=== PATIENT | female | born 1975 | race African-American/Black ===

== ENCOUNTER 2017-08-28 15:53 | Inpatient (IN) | payer BC ==
[~2017-08-28] VITALS: Ht 162.6 cm; Wt 68.6 kg
[2017-08-28] MEDS ORDERED: SOD CHLORIDE 0.9% 1,000 ML IV STA (16:21)
[2017-08-28] MEDS ORDERED: morphine 4 MG/ML VIAL IV STA ×2 (16:21→18:38)
[2017-08-28] MEDS ORDERED: ONDANSETRON 4 MG INJ IV STA ×2 (16:21→18:38)
[2017-08-28] MEDS ORDERED: SOD CHLORIDE 0.9% 1,000 ML IV ONE ×2 (16:30→19:00)
[2017-08-28 16:42] LABS: ABNORMAL IP MESSAGE 1; HEMATOCRIT 46.1 % (37.0-47.0); MEAN CORPUSCULAR HEMOGLOBIN 30.4 pg (29.0-33.0); MEAN CORPUSCULAR HGB CONC 32.5 g/dl (32.0-37.0); MEAN CORPUSCULAR VOLUME 93.5 fl (82.0-101.0); MEAN PLATELET VOLUME 9.1 fl (7.4-10.4); PLATELET COUNT 658 10^3/UL (140-415); RED BLOOD COUNT 4.93 10^6/ul (4.20-5.40); RED CELL DISTRIBUTION WIDTH 15.8 % (11.5-14.5); WHITE BLOOD COUNT 32.8 10^3/ul (4.8-10.8)
[2017-08-28 17:00] LABS: ALANINE AMINOTRANSFERASE 32 IU/L (13-69); ALBUMIN/GLOBULIN RATIO 0.81; ALKALINE PHOSPHATASE 162 IU/L (42-121); ANION GAP 17 (8-16); ASPARTATE AMINO TRANSFERASE 31 IU/L (15-46); BILIRUBIN,INDIRECT 0.2 mg/dl (0-1.1); BILIRUBIN,TOTAL 0.2 mg/dl (0.2-1.3); BLOOD UREA NITROGEN 12 mg/dl (7-20); CALCIUM 8.7 mg/dl (8.4-10.2); CARBON DIOXIDE 24 mmol/L (21-31); CHLORIDE 95 mmol/L (97-110); CREATININE 0.47 mg/dl (0.44-1.00); GLUCOSE 125 mg/dl (70-220); POTASSIUM 4.7 mmol/L (3.5-5.1); SODIUM 131 mmol/L (135-144); TOTAL PROTEIN 6.7 g/dl (6.1-8.1)
[2017-08-28 17:01] LABS: POSITIVE DIFF @See below
[2017-08-28] MEDS ORDERED: ACET650S9 PR (17:32)
[2017-08-28] MEDS ORDERED: ADV25050 INHALATION (17:36)
[2017-08-28] MEDS ORDERED: ACET160S2 GTB (17:36)
[2017-08-28] MEDS ORDERED: ALBU2.5V3 NEB (17:38)
[2017-08-28] MEDS ORDERED: AMLO-147 GTB (17:38)
[2017-08-28] MEDS ORDERED: CHLO473M7 MM (17:43)
[2017-08-28] MEDS ORDERED: CHLO118L3 TOP (17:43)
[2017-08-28] MEDS ORDERED: CLON-379 GTB (17:44)
[2017-08-28] MEDS ORDERED: DULO60CA6 GTB (17:45)
[2017-08-28] MEDS ORDERED: IPRA3AMP INHALATION (17:46)
[2017-08-28] MEDS ORDERED: NA P230E RC (17:47)
[2017-08-28] MEDS ORDERED: GABA-526 PO (17:48)
[2017-08-28] MEDS ORDERED: UDROBAC GTB (17:51)
[2017-08-28] MEDS ORDERED: LACTINEX GTB (17:52)
[2017-08-28] MEDS ORDERED: MULT9LIQ2 GTB (17:54)
[2017-08-28] MEDS ORDERED: VANCOMYCIN HCL 250 MG/5ML POSYG PO ONE (18:00)
[2017-08-28] MEDS ORDERED: NYST1000 PO (18:02)
[2017-08-28] MEDS ORDERED: OXYC5CAP17 PO (18:03)
[2017-08-28] MEDS ORDERED: OXYC10TA63 GTB (18:04)
[2017-08-28] MEDS ORDERED: FAMO20TA18 PO (18:05)
[2017-08-28] MEDS ORDERED: POTA20LI5 GTB (18:09)
[2017-08-28] MEDS ORDERED: PRED10TA GTB (18:10)
[2017-08-28] MEDS ORDERED: PROT946L GTB (18:11)
[2017-08-28] MEDS ORDERED: PANT40TA3 GTB (18:12)
[2017-08-28] MEDS ORDERED: SENN-53 GTB (18:15)
[2017-08-28] MEDS ORDERED: TRAZ50TA18 GTB (18:16)
[2017-08-28 18:20] LABS: ANISOCYTOSIS 1+ (0-0); EOSINOPHILS % (M) 1 % (0-7); HYPOCHROMASIA 1+ (0-0); METAMYELOCYTES %M 2 % (0-0); MONOCYTES % (M) 7 % (0-11); MYELOCYTES % (M) 2 % (0-0); PLATELET ESTIMATE INCREASED; PROMYELOCYTES #M 0.6 10^3/ul (0-0); PROMYELOCYTES % (M) 2 % (0-0)
[2017-08-28] MEDS ORDERED: VAN120L PO ×4 (18:28→18:35)
[2017-08-28] MEDS ORDERED: ONDA-43 PO (18:36)
[2017-08-28] MEDS ORDERED: GUAIFENESIN/CODEINE 5ML CUP GTB PRN (19:00)
[2017-08-28] MEDS ORDERED: SENNA TAB GTB PRN (19:00)
[2017-08-28] MEDS ORDERED: MAGNESIUM HYDROXIDE 30ML CUP PO PRN (19:00)
[2017-08-28] MEDS ORDERED: NA PHOSPHATE/BIPHOS 133 ML ENEMA PR PRN (19:00)
[2017-08-28] MEDS ORDERED: VANCOMYCIN IV PER PHARMACY XX SCH (19:00)
[2017-08-28] MEDS ORDERED: NACL 0.9% 3 ML SYG IV SCH (19:00)
[2017-08-28] MEDS ORDERED: DOCUSATE SODIUM 100 MG CAP PO PRN (19:00)
[2017-08-28] MEDS ORDERED: LORAZEPAM 2 MG INJ IV PRN (19:00)
[2017-08-28] MEDS ORDERED: ALBUTEROL 0.083% (NEB) 2.5 MG/3 ML AMP NEB PRN (19:00)
[2017-08-28] MEDS ORDERED: ACETAMINOPHEN 325 MG TAB PO PRN ×2 (19:00)
[2017-08-28] MEDS ORDERED: NA PHOS DI BA RC PRN (19:00)
[2017-08-28] MEDS ORDERED: ONDANSETRON 4 MG INJ IV PRN (19:00)
[2017-08-28] MEDS ORDERED: hydrALAzine 20 MG INJ IV PRN (19:00)
[2017-08-28] MEDS ORDERED: NA PHOS M B RC PRN (19:00)
[2017-08-28] MEDS ORDERED: ALBUTEROL/IPRATROPIUM (NEB) 3 ML AMP HHN PRN (19:00)
[2017-08-28] MEDS ORDERED: NITROGLYCERIN (SL) 0.4 MG TAB SL PRN (19:00)
[2017-08-28 19:35] LABS: INR 1.19; PARTIAL THROMBOPLASTIN TIME 30.2 Sec (25.0-35.0); PROTIME 15.3 Sec (11.9-14.9); PT RATIO 1.2
[2017-08-28 19:55] LABS: ADD UMIC YES; UR ASCORBIC ACID 40 mg/dL (NEGATIVE); UR BILIRUBIN (Dip) NEGATIVE (NEGATIVE); UR BLOOD (Dip) NEGATIVE (NEGATIVE); UR CLARITY SLIGHTLY CLOUDY (CLEAR); UR COLOR AMBER (YELLOW); UR GLUCOSE (Dip) NEGATIVE (NEGATIVE); UR KETONES (Dip) NEGATIVE (NEGATIVE); UR LEUKOCYTE ESTERASE (Dip) NEGATIVE Leu/ul (NEGATIVE); UR MUCUS FEW /HPF (NONE SEEN); UR NITRITE (Dip) NEGATIVE (NEGATIVE); UR RBC 0 /HPF (0-5); UR SPECIFIC GRAVITY (Dip) 1.023 (1.003-1.030); UR TOTAL PROTEIN (Dip) 1+ mg/dl (NEGATIVE); UR UROBILINOGEN (Dip) NEGATIVE (NEGATIVE)
[2017-08-28 20:27] VITALS: PULSE 130
--- NOTE | 2017-08-28 20:29 | ERD ---
ER Documentation Chief Complaint Chief Complaint ap diarrhea hx of c diff has been taking atb. increased WBC HPI This 42-year-old female comes emergency room for crampy abdominal pain going on for several days as well as nausea vomiting and copious watery diarrhea. She was diagnosed with C. difficile by her physician yesterday and has been on p.o. vancomycin for 1 day. Her last dose was at noon today. She had previously been hospitalized on multiple antibiotics for severe pneumonia and was in rehab facility when she started noticing the diarrhea. She has no shortness of breath , cough chest pain. She has no dysuria. She does have generalized weakness and has not eaten for greater than 5 days.. ROS All systems reviewed and are negative except as per history of present illness. Medications Home Meds Reported Medications Ondansetron Hcl* (Zofran*) 4 Mg Tab, 4 MG PO Q4H Y for NAUSEA AND OR VOMITING, TAB 08/28/17 Vancomycin Hcl* (Vancomycin Hcl* Liq) 8.33 Mg/Ml Soln, 125 MG PO DAILY, ML FOR 7 DAYS,START DATE 09/19/17 END DATE 09/26/17 08/28/17 Vancomycin Hcl* (Vancomycin Hcl* Liq) 8.33 Mg/Ml Soln, 250 MG PO Q6H, ML FOR 7 DAYS, START DATE 08/27/17 END 09/03/17 08/28/17 Vancomycin Hcl* (Vancomycin Hcl* Liq) 8.33 Mg/Ml Soln, 125 MG PO Q6H, ML FOR 7 DAYS,START DATE 09/04/17 END DATE 09/10/17 08/28/17 Vancomycin Hcl* (Vancomycin Hcl* Liq) 8.33 Mg/Ml Soln, 250 MG PO Q6H, ML FOR 14 DAYS,START DATE 08/28/17 END DATE 09/10/17 08/28/17 Vancomycin Hcl* (Vancomycin Hcl* Liq) 8.33 Mg/Ml Soln, 125 MG PO Q12H, ML TAKE FOR 7 DAYS, START DATE 09/11/17 END DATE 09/18/17 08/28/17 Trazodone Hcl* (Trazodone Hcl*) 50 Mg Tablet, 50 MG GTB QHS, #30 TAB 08/28/17 Sennosides* (Senna Lax*) 8.6 Mg Tablet, 1 TAB GTB Q12H Y for CONSTIPATION, TAB AND TAKE 2TAB QHS 08/28/17 Pantoprazole* (Protonix*) 40 Mg Tablet.dr, 40 MG GTB DAILY, TAB 08/28/17 Protein Supplement (Promod) 946 Ml Liquid, 30 ML GTB TID 08/28/17 Prednisone* (Prednisone*) 10 Mg Tab, 10 MG GTB DAILY, TAB 08/28/17 Potassium Chloride* (Potassium Chloride*) 20 Meq/15 Ml Liquid, 40 MEQ GTB BID, ML 08/28/17 Famotidine* (Famotidine*) 20 Mg Tablet, 20 MG PO DAILY, #30 TAB 08/28/17 Oxycodone Hcl* (Oxycontin*) 10 Mg Tab.sr.12h, 10 MG GTB Q12, TAB 08/28/17 Oxycodone Hcl* (IR) (Oxycodone Hcl*) 5 Mg Capsule, 5 MG PO Q4H Y for PAIN, CAP 08/28/17 Nystatin (Nystatin) 100,000 Unit/1 Ml Oral.susp, 5 ML PO QID, #60 ML FOR 14 DAYS, START DATE08/28/17 - STOP DATE 09/11/17 08/28/17 Multivitamin/Minerals* (Multivitamin w/Min* Liq) 9 Mg/15 Ml Liquid, 30 ML GTB DAILY, ML 08/28/17 Lactobacillus Acidophilus* (Lactinex*) 1 Tab Chew, 1 TAB GTB BID, TAB 08/28/17 Guaifenesin-Codeine Phosphate* (Robitussin* AC) 5 Ml Syrup, 5 ML GTB Q6H Y for COUGH, ML 08/28/17 Gabapentin* (Gabapentin*) 600 Mg Tablet, 600 MG PO Q8H, #90 TAB 08/28/17 Na Phos,M-B/Na Phos,Di-Ba (Fleet Enema Extra) 230 Ml Enema, 118 ML RC Q72H Y for NEEDED, ENEMA 08/28/17 Ipratropium-Albuterol (Ipratropium-Albuterol) 0.5-3 Mg/3 Ml Ampul.neb, 3 ML INHALATION Q6 for BRONCHOSPASM, #30 VIAL 08/28/17 Duloxetine Hcl* (Cymbalta*) 60 Mg Capsule.dr, 60 MG GTB DAILY, CAP 08/28/17 Clonidine Hcl* (Clonidine Hcl*) 0.1 Mg Tab, 0.1 MG GTB Q6, TAB FOR SBP>160 08/28/17 Chlorhexidine Gluconate (Paroex) 473 Ml Mouthwash, 0.5 OZ MM Q12H, BOTTLE 08/28/17 Amlodipine Besylate* (Amlodipine Besylate*) 10 Mg Tablet, 10 MG GTB DAILY, #30 TAB HOLD FOR SBP<110 08/28/17 Albuterol Sulfate* (Albuterol Sulfate* Neb) 0.083%-3 Ml Neb, 2.5 MG NEB Q4H Y for WHEEZING AND SOB, #30 VIAL 08/28/17 Salmeterol Xinaf/Fluticasone* (Advair*) 250-50 Diskus Inhaler, 1 INH INHALATION BID, #1 INHALER 08/28/17 Acetaminophen* (Tylenol*) 160 Mg/5ML-Ped Cup, 650 MG GTB Q4H Y for MILD PAIN LEVEL 1-3, ML AND PER FEEDING TUBE,AND FOR FEVER>101.5F 08/28/17 Acetaminophen* (Acephen*) 650 Mg Supp.rect, 650 MG NM Q4H Y for PAIN1-3/10, SUPP.RECT AND FOR TEMPERATURE>101.5F 08/28/17 Discontinued Reported Medications Chlorhexidine Gluconate* (Chlorhexidine Gluconate*) 118 Ml Liquid, 118 ML TOP, ML 08/28/17 Allergies Allergies: Coded Allergies: No Known Allergy (Unverified , 08/28/17) PMhx/Soc Hx Alcohol Use: No Hx Substance Use: No Hx Tobacco Use: No Smoking Status: Unknown if ever smoked Physical Exam Vitals Vital Signs Date Time Temp Pulse Resp B/P Pulse Ox O2 Delivery O2 Flow Rate FiO2 08/28/17 17:12 125 18 117/85 100 Room Air 08/28/17 16:22 99.0 139 20 126/90 99 Physical Exam Const: [] Head: Atraumatic Eyes: Normal Conjunctiva ENT: Normal External Ears, Nose and Mouth. Neck: Full range of motion..~ No meningismus. Resp: Clear to auscultation bilaterally Cardio: Regular rate and rhythm, no murmurs Abd: Soft, non tender, non distended. Normal bowel sounds Skin: No petechiae or rashes Back: No midline or flank tenderness Ext: No cyanosis, or edema Neur: Awake and alert Psych: Normal Mood and Affect Result Diagram: 08/28/17 1625 08/28/17 1625 Results 24 hrs Laboratory Tests Test 08/28/17 16:25 08/28/17 16:35 08/28/17 18:12 White Blood Count 32.810^3/ul Red Blood Count 4.9310^6/ul Hemoglobin 15.0g/dl Hematocrit 46.1% Mean Corpuscular Volume 93.5fl Mean Corpuscular Hemoglobin 30.4pg Mean Corpuscular Hemoglobin Concent 32.5g/dl Red Cell Distribution Width 15.8% Platelet Count 41503^3/UL Mean Platelet Volume 9.1fl Neutrophils % % Segmented Neutrophils % (Manual) 52% Band Neutrophils % (Manual) 30% Lymphocytes % (Manual) 5% Monocytes % (Manual) 7% Eosinophils % % Eosinophils % (Manual) 1% Basophils % % Metamyelocytes % (manual) 2% Myelocytes % (Manual) 2% Promyelocytes % (Manual) 2% Nucleated Red Blood Cells % 0.0/100WBC Neutrophils # 10^3/ul Neutrophils # (Manual) 20.310^3/ul Band Neutrophils # 9.810^3/ul Absolute Lymphocytes (Manual) 1.610^3/ul Absolute Monocytes (Manual) 2.210^3/ul Eosinophils # 10^3/ul Basophils # 10^3/ul Metamyelocytes # 0.610^3/ul Myelocytes # 0.610^3/ul Promyelocytes # 0.610^3/ul Platelet Estimate INCREASED Hypochromasia 1+ Anisocytosis 1+ Macrocytosis 1+ Sodium Level 131mmol/L Potassium Level 4.7mmol/L Chloride Level 95mmol/L Carbon Dioxide Level 24mmol/L Anion Gap 17 Blood Urea Nitrogen 12mg/dl Creatinine 0.47mg/dl Glucose Level 125mg/dl Calcium Level 8.7mg/dl Total Bilirubin 0.2mg/dl Direct Bilirubin 0.00mg/dl Indirect Bilirubin 0.2mg/dl Aspartate Amino Transf (AST/SGOT) 31IU/L Alanine Aminotransferase (ALT/SGPT) 32IU/L Alkaline Phosphatase 162IU/L Troponin I < 0.012ng/ml Total Protein 6.7g/dl Albumin 3.0g/dl Globulin 3.70g/dl Albumin/Globulin Ratio 0.81 Lipase < 10U/L Prothrombin Time 15.3Sec Prothrombin Time Ratio 1.2 INR International Normalized Ratio 1.19 Activated Partial Thromboplast Time 30.2Sec Free Thyroxine 1.21ng/dl Urine Color TRAVIS Urine Clarity SLIGHTLY CLOUDY Urine pH 6.0 Urine Specific [place] 1.023 Urine Ketones NEGATIVEmg/dL Urine Nitrite NEGATIVEmg/dL Urine Bilirubin NEGATIVEmg/dL Urine Urobilinogen NEGATIVEmg/dL Urine Leukocyte Esterase NEGATIVELeu/ul Urine Microscopic RBC 0/HPF Urine Microscopic WBC 5/HPF Urine Calcium Oxalate Crystals FEW/HPF Urine Mucus FEW/HPF Urine Hemoglobin NEGATIVEmg/dL Urine Glucose NEGATIVEmg/dL Urine Total Protein 1+mg/dl Current Medications Medications (Trade) Dose Ordered Sig/Shankar Route PRN Reason Start Time Stop Time Status Last Admin Dose Admin Sodium Chloride (NS) 1,000 ml @ 1,000 mls/hr Q1H STAT IV 08/28/17 16:21 08/28/17 17:20 DC 08/28/17 16:59 Morphine Sulfate (morphine) 4 mg ONCE STAT IV 08/28/17 16:21 08/28/17 16:24 DC 08/28/17 16:59 Ondansetron HCl 4 mg 4 mg ONCE STAT IV 08/28/17 16:21 08/28/17 16:24 DC 08/28/17 16:59 Sodium Chloride (NS) 1,000 ml @ 1,000 mls/hr Q1H ONCE IV 08/28/17 16:30 08/28/17 17:29 DC 08/28/17 16:59 Vancomycin HCl (Vancomycin Oral Syringe) 250 mg ONCE ONCE PO 08/28/17 18:00 08/28/17 18:01 DC 08/28/17 19:09 Morphine Sulfate (morphine) 4 mg ONCE STAT IV 08/28/17 18:38 08/28/17 18:43 DC 08/28/17 19:09 Ondansetron HCl (Zofran Inj) 4 mg ONCE STAT IV 08/28/17 18:38 08/28/17 18:43 DC 08/28/17 19:09 Procedures/MDM C. difficile with sepsis. Patient severely dehydrated that she has tachycardia even after 2 L of normal saline. Blood pressure is stabilized. She was given vancomycin 250 p.o., cultures are obtained look for any other source of infection. Vancomycin is appropriate monotherapy when the source is known to be C. difficile. He was placed in isolation precautions. She was given 4 mg of morphine 2 as well as Zofran 4 mg 2 in order to control her pain and nausea. This did improve her symptoms greatly. High-level leukocytosis is consistent with C. difficile. Patient is still tachycardic and I did add additional IV fluids. She is being admitted to telemetry for close monitoring of her serious condition. Critical care time greater than 35 minutes: This includes treatment of unstable vital signs, careful fluid administration, appropriate antibiotic administration , multiple visits patient's bedside to reassess her cardio dynamic status, review of chart, discussion with patient, patient's family and admitting doctor. This does not include any billable procedures. EKG interpretation: Sinus tachycardia, low voltage but no ST-T wave changes concerning for acute ischemia, indeterminate axis. Abnormal EKG monitoring coordinator interpretation: Sinus tachycardia originally around 140 improved with IV fluids to the 1 teens and 120s. Departure Diagnosis: Primary Impression: Clostridium difficile diarrhea Additional Impressions: Severe sepsis Hyponatremia Dehydration Condition: Serious LASHON ASTUDILLO DO Aug 28, 2017 20:28 IV Flush (NS 3 ml) 3 ml PER PROTOCOL IV 08/28/17 19:00 Ondansetron HCl (Zofran Inj) 4 mg Q6H PRN IV NAUSEA AND/OR VOMITING 08/28/17 19:00 Acetaminophen (Tylenol Tab) 650 mg Q6H PRN PO PAIN LEVEL 1-3 OR FEVER 08/28/17 19:00 Acetaminophen/ Hydrocodone Bitart ([place] (5/325)) 1 tab Q6H PRN PO MODERATE PAIN LEVEL 4-6 08/28/17 19:00 Morphine Sulfate (morphine) 2 mg Q4H PRN IV SEVERE PAIN LEVEL 7-10 08/28/17 19:00 Docusate Sodium (Colace) 100 mg Q12H PRN PO CONSTIPATION 08/28/17 19:00 Magnesium Hydroxide (Milk Of Mag) 30 ml DAILY PRN PO CONSTIPATION 08/28/17 19:00 Sodium Biphosphate/ Sodium Phosphate (Fleet Enema) 133 ml DAILY PRN NM CONSTIPATION 08/28/17 19:00 Heparin Sodium (Porcine) (Heparin (5000 Units/0.5 ml)) 5,000 unit Q12 SC 08/28/17 21:00 Lorazepam 0.5 mg 0.5 mg Q6H PRN IV ANXIETY 08/28/17 19:00 Sodium Chloride (NS) 1,000 ml @ 100 mls/hr Q10H IV 08/28/17 18:45 Albuterol/ Ipratropium 3 ml 3 ml Q4H RESP THERAPY PRN HHN SHORTNESS OF BREATH 08/28/17 19:00 Piperacillin Sod/ Tazobactam Sod (Zosyn 3.375gm/ 50 ml (Pmx)) 50 ml @ 100 mls/hr Q6 IVPB 08/29/17 00:00 Vancomycin HCl (Vanco Iv Per Pharmacy) VANCOMYCIN PER PHARMACY NOTE XX 08/28/17 19:00 UNV Hydralazine HCl (Apresoline) 10 mg Q6H PRN IV ELEVATED BLOOD PRESSURE 08/28/17 19:00 Nitroglycerin (Nitroglycerin (Sl Tab) 0.4 Mg) 1 tab Q5M PRN SL ANGINA 08/28/17 19:00 Albuterol (Proventil 0.083% (Neb)) 2.5 mg Q4H RESP THERAPY PRN NEB WHEEZING AND SOB 08/28/17 19:00 08/28/17 19:00 DC Amlodipine Besylate (Norvasc) 10 mg DAILY GTB 08/29/17 09:00 Chlorhexidine Gluconate (Peridex) 15 ml Q12 MM 08/28/17 21:00 Clonidine (Catapres) 0.1 mg Q6 GTB 08/29/17 00:00 Duloxetine HCl (Cymbalta) 60 mg DAILY GTB 08/29/17 09:00 Famotidine (Pepcid) 20 mg DAILY PO 08/29/17 09:00 Gabapentin (Neurontin) 600 mg Q8 PO 08/28/17 22:00 Guaifenesin/ Codeine Phosphate (Robitussin Ac Liquid Cup) 5 ml Q6H PRN GTB COUGH 08/28/17 19:00 Nystatin (Nystatin Susp) 5 ml QID PO 08/28/17 21:00 Ondansetron HCl (Zofran Tab) 4 mg Q4H PRN PO NAUSEA AND/OR VOMITING 08/28/17 19:00 Lansoprazole (Prevacid) 30 mg DAILY@06 GTB 08/29/17 06:00 Potassium Chloride (Potassium Chloride Pwd/Soln) 40 meq BID GTB 08/28/17 21:00 Prednisone (Prednisone) 10 mg DAILY GTB 08/29/17 09:00 Senna (Senokot) 1 tab Q12H PRN GTB CONSTIPATION 08/28/17 19:00 Trazodone HCl (Desyrel) 50 mg QHS GTB 08/28/17 21:00 Miscellaneous Information 1 tab BID GTB 08/28/17 21:00 UNV Multivitamins (Multivitamin) 30 ml DAILY GTB 08/29/17 09:00 Miscellaneous Information 118 ml Q72H PRN RC NEEDED 08/28/17 19:00 08/28/17 19:32 DC Miscellaneous Information 30 ml TID GTB 08/28/17 21:00 08/28/17 21:00 DC Vancomycin HCl (Vancomycin Oral Syringe) 250 mg Q6 PO 08/29/17 00:00 Procedures/MDM C. difficile with sepsis. Patient severely dehydrated that she has tachycardia even after 2 L of normal saline. Blood pressure is stabilized. She was given vancomycin p.o. cultures are obtained look for any other source of infection. Vancomycin is appropriate monotherapy when the source is known to be C. difficile. He was placed in isolation precautions. She was given 4 mg of morphine 2 as well as Zofran 4 mg 2 in order to control her pain and nausea. LASHON ASTUDILLO DO Aug 28, 2017 20:28
[2017-08-28 20:36] VITALS: Ht 162.6 cm; Wt 68.6 kg
[2017-08-28 20:40] VITALS: BP 123/75; PULSE 125; RESP 18
[2017-08-28] MEDS ORDERED: NON-FORMULARY/PATIENT OWN MED (Protein Supplement (Promod) 30 ML) GTB SCH (21:00)
[2017-08-28] MEDS: SOD CHLORIDE 0.9% 1,000 ML IV SCH (21:49)
[2017-08-28] MEDS: POTASSIUM CHLORIDE 20 MEQ POWDER FOR ORAL SOLN GTB SCH (22:01)
[2017-08-28] MEDS: HEPARIN 5,000 UNIT/0.5 ML VIAL SC SCH (22:01)
[2017-08-28] MEDS: GABAPENTIN 300 MG CAP PO SCH (22:01)
[2017-08-28] MEDS: CHLORHEXIDINE GLUCONATE 15 ML UD CUP MM SCH (22:01)
[2017-08-28] MEDS: traZODone 50 MG TAB GTB SCH (22:43)
[2017-08-28] MEDS: NYSTATIN SUSP 5 ML CUP PO SCH (22:43)
[2017-08-28] MEDS: morphine 2 MG INJ IV PRN (22:44)
[2017-08-28] MEDS: ONDANSETRON 4 MG INJ IV PRN (22:44)
--- NOTE | 2017-08-28 23:27 | HP ---
DATE OF ADMISSION: 08/28/2017 CHIEF COMPLAINT: This is a 42-year-old female, sent from group home for positive C. diff test. HISTORY OF PRESENT ILLNESS: The patient is a 42-year-old female, past medical history of some kind of muscular atrophy, recently hospitalized at [facility] in June for 6 weeks of this year, prior lung infection, who was recently told she had C. diff test result positive. This was performed 2 days ago, so on Saturday. Apparently, they were giving her at the nursing facility vancomycin p.o., but when they got a CBC count back today, the white blood cell count was very elevated and decided to send her into the ER. She has been having abdominal pain and diarrhea symptoms, but no fevers or chills. No nausea, vomiting. No upper or lower GI bleeding. No chest pain. No shortness of breath. When she arrived here, her white blood cell count was elevated, at 32.8, and she was given a dose of antibiotics vancomycin p.o. as well. PAST MEDICAL HISTORY: As stated above. ALLERGIES: NO KNOWN DRUG ALLERGIES. HOME MEDICATIONS: 1. Nystatin 5 mL p.o. q.i.d. 2. Vancomycin 250 mg p.o. q.6 hours. She only took 2 doses before she came here. 3. Albuterol nebulizer q.4 p.r.n. 4. Ipratropium inhaled q.6 hours. 5. Amlodipine 10 mg daily. 6. Clonidine 0.1 mg q.6 hours. 7. Tylenol p.r.n. 8. Cymbalta 60 mg daily. 9. Gabapentin 600 mg q.8 hours. 10. OxyContin 10 mg q.12 hours. 11. Trazodone 50 mg at bedtime. 12. Potassium chloride 40 mEq b.i.d. 13. Paroex q.12 hours. 14. Advair 250/50 inhaled b.i.d. 15. Robitussin AC q.6 hours p.r.n. 16. ProMod 30 mL t.i.d. 17. Lactobacillus b.i.d. 18. Cimetidine 20 mg daily. 19. Fleet enema per rectal q.72 hours p.r.n. 20. Zofran 4 mg q.6 p.r.n. 21. Protonix 40 mg daily. 22. Senna p.r.n. 23. Prednisone 10 mg daily. 24. Multivitamin daily. PAST SURGICAL HISTORY: Unknown. SOCIAL HISTORY: Negative for smoking, drinking, or IV drug abuse. FAMILY HISTORY: Unknown. VITAL SIGNS: Today T-max 99.0, pulse 124-139, respirations 18- 24, blood pressure 112/86, satting at 97%, room air. PHYSICAL EXAMINATION: GENERAL: Patient lying in bed. Family members at bedside. Alert and oriented, in no acute distress. HEENT: Pupils equal, round, react to light. Extraocular muscles intact. NECK: Supple. No thyromegaly. LUNGS: Clear to auscultation bilaterally. CARDIAC: S1, S2. No rubs, gallops. ABDOMEN: Tenderness to palpation, epigastric area. No rebound or guarding. Normal bowel sounds. MUSCULOSKELETAL: No lower extremities bilaterally. NEUROLOGIC: Weakness noted in the bilateral lower extremities. LABORATORY DATA: Labs: WBC 32.8. The rest of the CBC is normal. Coags are normal. Sodium 131, potassium 4.7, chloride 95, CO2 of 24, BUN 12, creatinine 0.47, glucose 125. LFTs are normal. Troponin negative x1. ASSESSMENT/PLAN: A 42-year-old female coming in with recent diagnosis of C. diff, with a prior history of muscular atrophy and lung infections. 1. Positive C. diff. Again, place the patient on p.o. vancomycin, IV fluids, and Tylenol p.r.n. pain or fever. Check TSH, A1c, lipid panel. Consider Infectious Disease consult. Also, with C. diff, patient has been on famotidine and PPI. With proton pump inhibitors, if taken for prolonged times, can cause C. diff, so will obviously hold the proton pump inhibitor for now. 2. Muscle atrophy. Unclear source of this. Patient apparently was diagnosed at [facility] in June of this year and stayed there for 6 weeks. Will need to get medical records from the hospital there. 3. History of prior lung infection. Again, consider checking chest x-ray here and put her on broad-spectrum antibiotics for now, since she has been living in a nursing facility. 4. PPx - Consider resuming the H2 merry. 5. Deep venous thrombosis prophylaxis. Heparin subcu. Consider PT consult. Dictated By: Xander Eason MD /fnt/lorraine /Document#: [id number]
[2017-08-28 23:46] VITALS: BP 118/73; RESP 19
[2017-08-29] VITALS (12 sets, daily range): BP systolic 105–119; BP diastolic 63–77; PULSE 109–130; RESP 17–20
[2017-08-29] MEDS: PIPER-TAZO 3.375 GM IV (PMX) 50 ML IVPB SCH ×2 (00:14→05:33)
[2017-08-29] MEDS ORDERED: VANCOMYCIN 1.25 GM in DEXTROSE 5% 250 ML IVPB ONE (02:00)
[2017-08-29] MEDS ORDERED: SOD CHLORIDE 0.9% 500 ML IV ONE (03:00)
[2017-08-29] MEDS: SOD CHLORIDE 0.9% 1,000 ML IV SCH (04:31)
[2017-08-29] MEDS: morphine 2 MG INJ IV PRN ×4 (05:32→20:23)
[2017-08-29] MEDS: GABAPENTIN 300 MG CAP PO SCH ×3 (05:33→20:22)
[2017-08-29] MEDS ORDERED: LANSOPRAZOLE 30 MG CAP GTB SCH (06:00)
[2017-08-29] MEDS ORDERED: VANCOMYCIN HCL 250 MG/5ML POSYG PO SCH ×2 (06:00)
[2017-08-29] MEDS ORDERED: FAMOTIDINE 20 MG TAB PO SCH (09:00)
[2017-08-29 09:10] LABS: ABNORMAL IP MESSAGE 1; HEMATOCRIT 39.9 % (37.0-47.0); HEMOGLOBIN 12.8 g/dl (12.0-16.0); MEAN CORPUSCULAR HEMOGLOBIN 30.8 pg (29.0-33.0); MEAN CORPUSCULAR HGB CONC 32.1 g/dl (32.0-37.0); MEAN CORPUSCULAR VOLUME 95.9 fl (82.0-101.0); MEAN PLATELET VOLUME 9.3 fl (7.4-10.4); PLATELET COUNT 566 10^3/UL (140-415); RED BLOOD COUNT 4.16 10^6/ul (4.20-5.40); RED CELL DISTRIBUTION WIDTH 15.6 % (11.5-14.5)
[2017-08-29 09:15] LABS: POSITIVE DIFF @See below
[2017-08-29 09:33] LABS: CALCIUM 7.8 mg/dl (8.4-10.2); CREATININE 0.38 mg/dl (0.44-1.00); MAGNESIUM 1.7 mg/dl (1.7-2.5); PHOSPHORUS 2.7 mg/dl (2.5-4.9); POTASSIUM 3.7 mmol/L (3.5-5.1)
[2017-08-29] MEDS: DULOXETINE 30 MG CAP DR GTB SCH (09:45)
[2017-08-29] MEDS: MULTIVITAMINS 30 ML CUP GTB SCH (09:45)
[2017-08-29] MEDS: NYSTATIN SUSP 5 ML CUP PO SCH (09:46)
[2017-08-29] MEDS: POTASSIUM CHLORIDE 20 MEQ POWDER FOR ORAL SOLN GTB SCH ×2 (09:46→20:22)
[2017-08-29] MEDS: LACTOBACILLUS RHAMNOSUS CAP GTB SCH ×2 (09:46→20:21)
[2017-08-29] MEDS: predniSONE 10 MG TAB GTB SCH (09:47)
[2017-08-29] MEDS: CHLORHEXIDINE GLUCONATE 15 ML UD CUP MM SCH ×2 (09:47→20:21)
[2017-08-29] MEDS: AMLODIPINE 10 MG TAB GTB SCH (09:48)
[2017-08-29] MEDS: ONDANSETRON 4 MG TAB PO PRN ×2 (09:48→15:36)
[2017-08-29 09:53] LABS: CHOL/HDL RATIO 3.8 RATIO
[2017-08-29] MEDS: HEPARIN 5,000 UNIT/0.5 ML VIAL SC SCH (09:56)
[2017-08-29 10:30] LABS: THYROID STIMULATING HORMONE 1.94 MIU/L (0.465-4.680)
--- NOTE | 2017-08-29 11:31 | CONS ---
DATE OF ADMISSION: 08/28/2017 DATE OF CONSULTATION: 08/29/2017 TYPE OF CONSULTATION: Infectious Disease. REASON FOR CONSULTATION: Antibiotic management. HISTORY OF PRESENT ILLNESS: Jayne Ochoa is a 42-year-old unfortunate female who was sent from the long-term for positive C. difficile. Her past problems include muscle atrophy. The pat nakia was hospitalized at [facility] in June for 6 weeks for prior lung infection. She w as recently told she had C. difficile. They are giving her vancomycin at the long-term, but her white count was very elevated and decided to send him to the emergency room. In the emergency room, her white count was 32.8, H and H of 15 and 46.1, platelet count 658,000 with 52 polys, 30 bands. Today, her white count is 26,000. BUN and creatinine 5/0.38. Urine is negative for leukocyte estera se and nitrites. PAST MEDICAL HISTORY: Operations as outlined. FAMILY HISTORY: Noncontributory. SOCIAL HISTORY: She does not smoke, drink or abuse drugs. ALLERGIES: NONE TO PENICILLIN, SULFA OR FOODS. MEDICATIONS: Per chart. REVIEW OF SYSTEMS: As per HPI. PHYSICAL EXAMINATION: GENERAL: The patient is awake, responsive, in no acute distress. VITAL SIGNS: Stable. She is afebrile. SKIN: Without generalized rash. HEENT: Within normal limits. NECK: Supple. LYMPH NODES: None palpable. CHEST: Decreased breath sounds at the bases. HEART: Without murmur or gallop. ABDOMEN: Soft, nontender. She has some tenderness in the epigastric area. No organosplenomegaly o r masses. EXTREMITIES: Without cyanosis, clubbing, or edema. RECTAL AND GENITAL: Deferred. NEUROLOGIC: Weakness in both lower extremities. IMPRESSION AND PLAN: The patient comes in now with a history of muscle atrophy, lung infection and Clostridium difficile. We are going to continue her on vancomycin 250 mg. She is getting vancomyci n IV piggyback and she is getting Vancomycin 250 mg q.6. She is also on Zosyn for history of lung i nfection. We will continue her on this current therapy. I will dictate my findings to the hospital ist. Dictated By: MARII LERNER MD, JD/JC Conf#: [id number] [facility]#: [id number]
[2017-08-29 11:48] LABS: ANISOCYTOSIS 1+ (0-0); METAMYELOCYTES %M 1 % (0-0); MONOCYTES % (M) 2 % (0-11); PLATELET ESTIMATE INCREASED; POIKILOCYTOSIS 3+ (0-0); POLYCHROMASIA 3+ (0-0)
--- NOTE | 2017-08-29 12:44 | PN ---
Date/Time of Note Date/Time of Note DATE: 08/29/17 TIME: 12:39 Assessment/Plan VTE Prophylaxis VTE Prophylaxis Intervention: LMWH Lines/Catheters IV Catheter Type (from Nrs): Peripheral IV Assessment/Plan Chief Complaint/Hosp Course 1. C. difficile colitis Continue vancomycin p.o. ID consultation appreciated 2. Debility secondary to prolonged hospitalization for pneumonia Patient had pneumonia several months ago which required a prolonged stay at [facility], patient subsequently developed muscular weakness and was discharged to a rehab facility for PT No indication for further vancomycin IV and Zosyn as pneumonia has already been treated, DC Vanco IV and Zosyn PT evaluation Prophylaxis: Lovenox Problems: Subjective 24 Hr Interval Summary Gastrointestinal: diarrhea, pain Exam/Review of Systems Vital Signs Vitals Vital Signs Date Time Temp Pulse Resp B/P Pulse Ox O2 Delivery O2 Flow Rate FiO2 08/29/17 12:04 121 08/29/17 11:47 98.7 17 119/75 100 08/28/17 20:40 Room Air Intake and Output 08/28/17 08/28/17 08/29/17 14:59 22:59 06:59 Intake Total 3000 ml 1300 ml Output Total 500 ml Balance 3000 ml 800 ml Exam Constitutional: alert, oriented Respiratory: clear to auscultation Cardiovascular: regular rate and rhythm Gastrointestinal: soft, No distended Musculoskeletal: nl extremities to inspection Results Result Diagram: 08/29/17 0813 08/29/17 0814 Results 24 hrs Laboratory Tests Test 08/28/17 16:25 08/28/17 16:35 08/28/17 18:12 08/28/17 19:00 White Blood Count 32.8 H Red Blood Count 4.93 Hemoglobin 15.0 Hematocrit 46.1 Mean Corpuscular Volume 93.5 Mean Corpuscular Hemoglobin 30.4 Mean Corpuscular Hemoglobin Concent 32.5 Red Cell Distribution Width 15.8 H Platelet Count 658 H Mean Platelet Volume 9.1 Neutrophils % Segmented Neutrophils % (Manual) 52 Band Neutrophils % (Manual) 30 H Lymphocytes % (Manual) 5 L Monocytes % (Manual) 7 Eosinophils % Eosinophils % (Manual) 1 Basophils % Metamyelocytes % (manual) 2 H Myelocytes % (Manual) 2 H Promyelocytes % (Manual) 2 H Nucleated Red Blood Cells % 0.0 Neutrophils # Neutrophils # (Manual) 20.3 H Band Neutrophils # 9.8 H Absolute Lymphocytes (Manual) 1.6 Absolute Monocytes (Manual) 2.2 H Eosinophils # Basophils # Metamyelocytes # 0.6 H Myelocytes # 0.6 H Promyelocytes # 0.6 H Platelet Estimate INCREASED Hypochromasia 1+ Anisocytosis 1+ Macrocytosis 1+ Sodium Level 131 L Potassium Level 4.7 Chloride Level 95 L Carbon Dioxide Level 24 Anion Gap 17 H Blood Urea Nitrogen 12 Creatinine 0.47 Glucose Level 125 Calcium Level 8.7 Total Bilirubin 0.2 Direct Bilirubin 0.00 Indirect Bilirubin 0.2 Aspartate Amino Transf (AST/SGOT) 31 Alanine Aminotransferase (ALT/SGPT) 32 Alkaline Phosphatase 162 H Troponin I < 0.012 Total Protein 6.7 Albumin 3.0 L Globulin 3.70 H Albumin/Globulin Ratio 0.81 Lipase < 10 L Prothrombin Time 15.3 H Prothrombin Time Ratio 1.2 INR International Normalized Ratio 1.19 Activated Partial Thromboplast Time 30.2 Free Thyroxine 1.21 Urine Color TRAVIS Urine Clarity SLIGHTLY CLOUDY A Urine pH 6.0 Urine Specific [place] 1.023 Urine Ketones NEGATIVE Urine Nitrite NEGATIVE Urine Bilirubin NEGATIVE Urine Urobilinogen NEGATIVE Urine Leukocyte Esterase NEGATIVE Urine Microscopic RBC 0 Urine Microscopic WBC 5 Urine Calcium Oxalate Crystals FEW A Urine Mucus FEW A Urine Hemoglobin NEGATIVE Urine Glucose NEGATIVE Urine Total Protein 1+ H Lactic Acid Level 2.3 *H Test 08/28/17 21:10 08/28/17 23:07 08/29/17 08:13 08/29/17 08:14 Lactic Acid Level 1.9 1.3 White Blood Count 26.0 #H Red Blood Count 4.16 L Hemoglobin 12.8 Hematocrit 39.9 Mean Corpuscular Volume 95.9 Mean Corpuscular Hemoglobin 30.8 Mean Corpuscular Hemoglobin Concent 32.1 Red Cell Distribution Width 15.6 H Platelet Count 566 H Mean Platelet Volume 9.3 Neutrophils % Segmented Neutrophils % (Manual) 64 Band Neutrophils % (Manual) 24 H Lymphocytes % Lymphocytes % (Manual) 9 L Monocytes % Monocytes % (Manual) 2 Eosinophils % Basophils % Metamyelocytes % (manual) 1 H Nucleated Red Blood Cells % 0.0 Neutrophils # Neutrophils # (Manual) 18.3 H Band Neutrophils # 6.2 H Absolute Lymphocytes (Manual) 2.3 Lymphocytes # Monocytes # Absolute Monocytes (Manual) 0.5 Eosinophils # Basophils # Metamyelocytes # 0.2 H Nucleated Red Blood Cells # Platelet Estimate INCREASED Polychromasia 3+ Poikilocytosis 3+ Anisocytosis 1+ Hemoglobin A1c 4.9 Triglycerides Level 100 Cholesterol Level 77 L LDL Cholesterol, Calculated 37 HDL Cholesterol 20 L Cholesterol/HDL Ratio 3.8 Thyroid Stimulating Hormone (TSH) 1.940 Sodium Level 132 L Potassium Level 3.7 Chloride Level 102 Carbon Dioxide Level 23 Anion Gap 11 Blood Urea Nitrogen 5 L Creatinine 0.38 L Glucose Level 70 # Calcium Level 7.8 L Phosphorus Level 2.7 Magnesium Level 1.7 Medications Medications Current Medications Ondansetron HCl (Zofran Inj) 4 mg Q6H PRN IV NAUSEA AND/OR VOMITING Last administered on 08/28/17 22:44; Admin Dose 4 MG; Start 08/28/17 at 19:00 Acetaminophen (Tylenol Tab) 650 mg Q6H PRN PO PAIN LEVEL 1-3 OR FEVER; Start 08/28/17 at 19:00 Acetaminophen/ Hydrocodone Bitart ([place] (5/325)) 1 tab Q6H PRN PO MODERATE PAIN LEVEL 4-6; Start 08/28/17 at 19:00 Morphine Sulfate (morphine) 2 mg Q4H PRN IV SEVERE PAIN LEVEL 7-10 Last administered on 08/29/17 10:09; Admin Dose 2 MG; Start 08/28/17 at 19:00 Docusate Sodium (Colace) 100 mg Q12H PRN PO CONSTIPATION; Start 08/28/17 at 19 :00 Magnesium Hydroxide (Milk Of Mag) 30 ml DAILY PRN PO CONSTIPATION; Start 08/28 at 19:00 Sodium Biphosphate/ Sodium Phosphate (Fleet Enema) 133 ml DAILY PRN [place] CONSTIPATION; Start 08/28/17 at 19:00 Heparin Sodium (Porcine) (Heparin (5000 Units/0.5 ml)) 5,000 unit Q12 SC Last administered on 08/29/17 09:56; Admin Dose 5,000 UNIT; Start 08/28/17 at 21: 00 Lorazepam 0.5 mg 0.5 mg Q6H PRN IV ANXIETY; Start 08/28/17 at 19:00 Sodium Chloride 1,000 ml @ 100 mls/hr Q10H IV Last administered on 08/28/17 21:49; Admin Dose 100 MLS/HR; Start 08/28/17 at 18:45 Piperacillin Sod/ Tazobactam Sod (Zosyn 3.375gm/ 50 ml (Pmx)) 50 ml @ 100 mls/ hr Q6 IVPB Last administered on 08/29/17 05:33; Admin Dose 100 MLS/HR; Start 08/29/17 at 00:00 Vancomycin HCl (Vanco Iv Per Pharmacy) VANCOMYCIN PER PHARMACY NOTE XX ; Start 08/28/17 at 19:00 Hydralazine HCl (Apresoline) 10 mg Q6H PRN IV ELEVATED BLOOD PRESSURE; Start 08/28/17 at 19:00 Nitroglycerin (Nitroglycerin (Sl Tab) 0.4 Mg) 1 tab Q5M PRN SL ANGINA; Start 08/28/17 at 19:00 Amlodipine Besylate (Norvasc) 10 mg DAILY GTB Last administered on 08/29/17 09:48; Admin Dose 10 MG; Start 08/29/17 at 09:00 Chlorhexidine Gluconate (Peridex) 15 ml Q12 MM Last administered on 08/29/17 09:47; Admin Dose 15 ML; Start 08/28/17 at 21:00 Clonidine (Catapres) 0.1 mg Q6 GTB ; Start 08/29/17 at 00:00 Duloxetine HCl (Cymbalta) 60 mg DAILY GTB Last administered on 08/29/17 09:45 ; Admin Dose 60 MG; Start 08/29/17 at 09:00 Famotidine (Pepcid) 20 mg DAILY PO Last administered on 08/29/17 09:47; Admin Dose 20 MG; Start 08/29/17 at 09:00 Gabapentin (Neurontin) 600 mg Q8 PO Last administered on 08/29/17 05:33; Admin Dose 600 MG; Start 08/28/17 at 22:00 Guaifenesin/ Codeine Phosphate (Robitussin Ac Liquid Cup) 5 ml Q6H PRN GTB COUGH; Start 08/28/17 at 19:00 Nystatin (Nystatin Susp) 5 ml QID PO Last administered on 08/29/17 09:46; Admin Dose 5 ML; Start 08/28/17 at 21:00 Ondansetron HCl (Zofran Tab) 4 mg Q4H PRN PO NAUSEA AND/OR VOMITING Last administered on 08/29/17 09:48; Admin Dose 4 MG; Start 08/28/17 at 19:00 Lansoprazole (Prevacid) 30 mg DAILY@06 GTB Last administered on 08/29/17 05: 33; Admin Dose 30 MG; Start 08/29/17 at 06:00 Potassium Chloride (Potassium Chloride Pwd/Soln) 40 meq BID GTB Last administered on 08/29/17 09:46; Admin Dose 40 MEQ; Start 08/28/17 at 21:00 Prednisone (Prednisone) 10 mg DAILY GTB Last administered on 08/29/17 09:47; Admin Dose 10 MG; Start 08/29/17 at 09:00 Senna (Senokot) 1 tab Q12H PRN GTB CONSTIPATION; Start 08/28/17 at 19:00 Trazodone HCl (Desyrel) 50 mg QHS GTB Last administered on 08/28/17 22:43; Admin Dose 50 MG; Start 08/28/17 at 21:00 Lactobacillus Acidophilus/ Rhamnosus (Culturelle) 1 cap BID GTB Last administered on 08/29/17 09:46; Admin Dose 1 CAP; Start 08/29/17 at 09:00 Multivitamins (Multivitamin) 30 ml DAILY GTB Last administered on 08/29/17 09 :45; Admin Dose 30 ML; Start 08/29/17 at 09:00 Vancomycin HCl 250 mg 250 mg Q6 PO Last administered on 08/29/17 05:33; Admin Dose 250 MG; Start 08/29/17 at 06:00 Vancomycin HCl (Vancocin) 250 ml @ 125 mls/hr Q12H IVPB ; Start 08/29/17 at 14 :00 PARIS REHMAN Aug 29, 2017 12:44
[2017-08-29] MEDS ORDERED: MAGNESIUM SULFATE 2 GM/50 ML 50 ML IVPB ONE (13:00)
[2017-08-29] MEDS: NYSTATIN SUSP 5 ML CUP GTB SCH ×3 (13:43→20:22)
[2017-08-29] MEDS ORDERED: VANCOMYCIN 1 GM in NS 250 ML IVPB SCH (14:00)
[2017-08-29] MEDS: VANCOMYCIN HCL 250 MG/5ML POSYG GTB SCH (18:00)
[2017-08-29] MEDS: traZODone 50 MG TAB GTB SCH (20:22)
[2017-08-30] VITALS (11 sets, daily range): BP systolic 90–120; BP diastolic 59–69; PULSE 75–101; RESP 18–19
[2017-08-30] MEDS: VANCOMYCIN HCL 250 MG/5ML POSYG GTB SCH ×6 (01:00→23:51)
[2017-08-30] MEDS: morphine 2 MG INJ IV PRN ×5 (01:10→22:11)
[2017-08-30] MEDS: GABAPENTIN 300 MG CAP PO SCH ×3 (06:46→22:08)
[2017-08-30 08:17] LABS: ABNORMAL IP MESSAGE 1; HEMATOCRIT 37.5 % (37.0-47.0); HEMOGLOBIN 11.7 g/dl (12.0-16.0); MEAN CORPUSCULAR HEMOGLOBIN 30.8 pg (29.0-33.0); MEAN CORPUSCULAR HGB CONC 31.2 g/dl (32.0-37.0); MEAN CORPUSCULAR VOLUME 98.7 fl (82.0-101.0); MEAN PLATELET VOLUME 8.9 fl (7.4-10.4); PLATELET COUNT 549 10^3/UL (140-415); RED CELL DISTRIBUTION WIDTH 15.9 % (11.5-14.5); WHITE BLOOD COUNT 19.2 10^3/ul (4.8-10.8)
[2017-08-30 08:30] LABS: POSITIVE DIFF @See below
[2017-08-30 08:44] LABS: ANION GAP 8 (8-16); CALCIUM 7.8 mg/dl (8.4-10.2); CARBON DIOXIDE 26 mmol/L (21-31); CHLORIDE 104 mmol/L (97-110); CREATININE 0.41 mg/dl (0.44-1.00); GLUCOSE 75 mg/dl (70-220); PHOSPHORUS 3.2 mg/dl (2.5-4.9); POTASSIUM 3.9 mmol/L (3.5-5.1); SODIUM 134 mmol/L (135-144)
[2017-08-30 08:45] LABS: BLOOD UREA NITROGEN < 2 mg/dl (7-20)
[2017-08-30] MEDS: CHLORHEXIDINE GLUCONATE 15 ML UD CUP MM SCH ×2 (08:57→20:54)
[2017-08-30] MEDS: NYSTATIN SUSP 5 ML CUP GTB SCH ×4 (09:11→20:54)
[2017-08-30] MEDS: LACTOBACILLUS RHAMNOSUS CAP GTB SCH ×2 (09:11→20:54)
[2017-08-30] MEDS: POTASSIUM CHLORIDE 20 MEQ POWDER FOR ORAL SOLN GTB SCH ×2 (09:11→20:54)
[2017-08-30] MEDS: DULOXETINE 30 MG CAP DR GTB SCH (09:11)
[2017-08-30] MEDS: MULTIVITAMINS 30 ML CUP GTB SCH (09:11)
[2017-08-30] MEDS: FAMOTIDINE 20 MG TAB GTB SCH (09:11)
[2017-08-30] MEDS: AMLODIPINE 10 MG TAB GTB SCH (09:12)
[2017-08-30] MEDS: predniSONE 10 MG TAB GTB SCH (09:12)
[2017-08-30] MEDS: ENOXAPARIN 40 MG/0.4 ML SYG SC SCH (09:15)
[2017-08-30 10:14] LABS: ANISOCYTOSIS 1+ (0-0); BURR CELLS 3+ (0-0); ERYTHROBLAST% (NRBC) (M) 1 % (0-0); METAMYELOCYTES %M 1 % (0-0); MONOCYTES % (M) 2 % (0-11); MYELOCYTES % (M) 4 % (0-0); PLATELET ESTIMATE INCREASED; POIKILOCYTOSIS 2+ (0-0); POLYCHROMASIA 1+ (0-0)
[2017-08-30] MEDS: ONDANSETRON 4 MG INJ IV PRN ×2 (12:56→18:08)
[2017-08-30] MEDS: MUPIROCIN 2% 22 GM OINT TOP SCH ×2 (15:00→22:08)
--- NOTE | 2017-08-30 15:30 | PN ---
DATE: 08/30/2017 SUBJECTIVE: The patient is awake, complaining of watery stools. She is in no distress. Afebrile, no vomiting. LABORATORY DATA: WBC 19.2, platelets 549, bands 7. BUN 2, creatinine 0.41. MICROBIOLOGY: Blood culture negative. Stool for C. difficile positive, MRSA swab positive. ANTIMICROBIALS: The patient is on oral vancomycin. She is also on Culturelle. PHYSICAL EXAMINATION: GENERAL: Well-developed, middle-aged -[place] woman who is alert, in no distress. HEENT: Head atraumatic, normocephalic. Sclerae anicteric. Buccal mucosa pink. NECK: Supple. CHEST: Rise symmetrical. Breath sounds clear. HEART: S1, S2. ABDOMEN: Soft. Bowel tones present. ASSESSMENT: 1. Ongoing diarrhea secondary to Clostridium difficile colitis. 2. Status post pneumonia. PLAN: The patient remains stable. We are going to add Flagyl and Questran to the regimen. Continu e vancomycin, continue supportive care and hydration. We will also add Bactroban to nares. Dictated By: TATYANA JOVEL MEDICAL RECORD TRANSCRIBER for MARII BELL/JC Conf#: [id number] DID#: [id number]
--- NOTE | 2017-08-30 16:36 | PN ---
Date/Time of Note Date/Time of Note DATE: 08/30/17 TIME: 16:33 Assessment/Plan VTE Prophylaxis VTE Prophylaxis Intervention: LMWH Lines/Catheters IV Catheter Type (from [facility]): [place] Assessment/Plan Chief Complaint/Hosp Course 1. C. difficile colitis Continue vancomycin p.o. ID consultation appreciated 2. Debility secondary to prolonged hospitalization for pneumonia Patient had pneumonia several months ago which required a prolonged stay at [facility], patient subsequently developed muscular weakness and was discharged to a rehab facility for PT No indication for further vancomycin IV and Zosyn as pneumonia has already been treated, DC Vanco IV and Zosyn PT evaluation Advance diet, speech therapy evaluation Prophylaxis: Lovenox Problems: Subjective 24 Hr Interval Summary Gastrointestinal: diarrhea Exam/Review of Systems Vital Signs Vitals Vital Signs Date Time Temp Pulse Resp B/P Pulse Ox O2 Delivery O2 Flow Rate FiO2 08/30/17 16:19 98.0 97 18 94/60 98 08/30/17 16:10 Room Air Intake and Output 08/29/17 08/29/17 08/30/17 14:59 22:59 06:59 Intake Total 800 ml Balance 800 ml Exam Constitutional: alert, oriented Respiratory: clear to auscultation Cardiovascular: regular rate and rhythm Gastrointestinal: soft, No distended Musculoskeletal: nl extremities to inspection Results Result Diagram: 08/30/17 0757 08/30/17 0757 Results 24 hrs Laboratory Tests Test 08/30/17 07:57 White Blood Count 19.2 #H Red Blood Count 3.80 L Hemoglobin 11.7 L Hematocrit 37.5 Mean Corpuscular Volume 98.7 Mean Corpuscular Hemoglobin 30.8 Mean Corpuscular Hemoglobin Concent 31.2 L Red Cell Distribution Width 15.9 H Platelet Count 549 H Mean Platelet Volume 8.9 Neutrophils % Segmented Neutrophils % (Manual) 66 Band Neutrophils % (Manual) 7 H Lymphocytes % Lymphocytes % (Manual) 20 Monocytes % Monocytes % (Manual) 2 Eosinophils % Basophils % Metamyelocytes % (manual) 1 H Myelocytes % (Manual) 4 H Nucleated Red Blood Cells % 1 H Neutrophils # Neutrophils # (Manual) 12.9 H Band Neutrophils # 1.3 H Absolute Lymphocytes (Manual) 3.8 H Lymphocytes # Monocytes # Absolute Monocytes (Manual) 0.3 Eosinophils # Basophils # Metamyelocytes # 0.1 H Myelocytes # 0.7 H Nucleated Red Blood Cells # Platelet Estimate INCREASED Polychromasia 1+ Poikilocytosis 2+ Anisocytosis 1+ Macrocytosis 1+ Sodium Level 134 L Potassium Level 3.9 Chloride Level 104 Carbon Dioxide Level 26 Anion Gap 8 Blood Urea Nitrogen < 2 L Creatinine 0.41 L Glucose Level 75 Calcium Level 7.8 L Phosphorus Level 3.2 Magnesium Level 2.0 Medications Medications Current Medications Ondansetron HCl (Zofran Inj) 4 mg Q6H PRN IV NAUSEA AND/OR VOMITING Last administered on 08/30/17 12:56; Admin Dose 4 MG; Start 08/28/17 at 19:00 Acetaminophen (Tylenol Tab) 650 mg Q6H PRN PO PAIN LEVEL 1-3 OR FEVER; Start 08/28/17 at 19:00 Acetaminophen/ Hydrocodone Bitart ([place] (5/325)) 1 tab Q6H PRN PO MODERATE PAIN LEVEL 4-6; Start 08/28/17 at 19:00 Morphine Sulfate (morphine) 2 mg Q4H PRN IV SEVERE PAIN LEVEL 7-10 Last administered on 08/30/17 12:55; Admin Dose 2 MG; Start 08/28/17 at 19:00 Docusate Sodium (Colace) 100 mg Q12H PRN PO CONSTIPATION; Start 08/28/17 at 19 :00 Magnesium Hydroxide (Milk Of Mag) 30 ml DAILY PRN PO CONSTIPATION; Start 08/28 at 19:00 Sodium Biphosphate/ Sodium Phosphate (Fleet Enema) 133 ml DAILY PRN [place] CONSTIPATION; Start 08/28/17 at 19:00 Lorazepam (Ativan) 0.5 mg Q6H PRN IV ANXIETY; Start 08/28/17 at 19:00 Hydralazine HCl (Apresoline) 10 mg Q6H PRN IV ELEVATED BLOOD PRESSURE; Start 08/28/17 at 19:00 Nitroglycerin (Nitroglycerin (Sl Tab) 0.4 Mg) 1 tab Q5M PRN SL ANGINA; Start 08/28/17 at 19:00 Amlodipine Besylate (Norvasc) 10 mg DAILY GTB Last administered on 08/30/17 09:12; Admin Dose 10 MG; Start 08/29/17 at 09:00 Chlorhexidine Gluconate (Peridex) 15 ml Q12 MM Last administered on 08/30/17 08:57; Admin Dose 15 ML; Start 08/28/17 at 21:00 Clonidine (Catapres) 0.1 mg Q6 GTB Last administered on 08/30/17 12:52; Admin Dose 0.1 MG; Start 08/29/17 at 00:00 Duloxetine HCl (Cymbalta) 60 mg DAILY GTB Last administered on 08/30/17 09:11 ; Admin Dose 60 MG; Start 08/29/17 at 09:00 Gabapentin (Neurontin) 600 mg Q8 PO Last administered on 08/30/17 12:56; Admin Dose 600 MG; Start 08/28/17 at 22:00 Guaifenesin/ Codeine Phosphate (Robitussin Ac Liquid Cup) 5 ml Q6H PRN GTB COUGH; Start 08/28/17 at 19:00 Ondansetron HCl (Zofran Tab) 4 mg Q4H PRN PO NAUSEA AND/OR VOMITING Last administered on 08/29/17 15:36; Admin Dose 4 MG; Start 08/28/17 at 19:00 Potassium Chloride (Potassium Chloride Pwd/Soln) 40 meq BID GTB Last administered on 08/30/17 09:11; Admin Dose 40 MEQ; Start 08/28/17 at 21:00 Prednisone (Prednisone) 10 mg DAILY GTB Last administered on 08/30/17 09:12; Admin Dose 10 MG; Start 08/29/17 at 09:00 Senna (Senokot) 1 tab Q12H PRN GTB CONSTIPATION; Start 08/28/17 at 19:00 Trazodone HCl (Desyrel) 50 mg QHS GTB Last administered on 08/29/17 20:22; Admin Dose 50 MG; Start 08/28/17 at 21:00 Lactobacillus Acidophilus/ Rhamnosus (Culturelle) 1 cap BID GTB Last administered on 08/30/17 09:11; Admin Dose 1 CAP; Start 08/29/17 at 09:00 Multivitamins (Multivitamin) 30 ml DAILY GTB Last administered on 08/30/17 09 :11; Admin Dose 30 ML; Start 08/29/17 at 09:00 Enoxaparin Sodium (Lovenox) 40 mg DAILY SC Last administered on 08/30/17 09: 15; Admin Dose 40 MG; Start 08/30/17 at 09:00 Famotidine (Pepcid) 20 mg DAILY GTB Last administered on 08/30/17 09:11; Admin Dose 20 MG; Start 08/30/17 at 09:00 Nystatin (Nystatin Susp) 5 ml QID GTB Last administered on 08/30/17 12:51; Admin Dose 5 ML; Start 08/29/17 at 13:00 Vancomycin HCl (Vancomycin Oral Syringe) 250 mg Q6 GTB Last administered on 12:52; Admin Dose 250 MG; Start 08/29/17 at 18:00 Metronidazole (Flagyl) 500 mg Q8 PO ; Start 08/30/17 at 15:00 Cholestyramine Resin (Questran) 1 pkt DAILY PO ; Start 08/30/17 at 15:00 Mupirocin (Bactroban) 1 applic BID TOP ; Start 08/30/17 at 15:00 PARIS REHMAN Aug 30, 2017 16:36
[2017-08-30] MEDS: metroNIDAZOLE 500 MG TAB PO SCH ×2 (16:44→22:07)
[2017-08-30] MEDS: CHOLESTYRAMINE 4 GM PACKET PO SCH (16:44)
[2017-08-30] MEDS: traZODone 50 MG TAB GTB SCH (20:54)
[2017-08-31] VITALS (12 sets, daily range): BP systolic 98–116; BP diastolic 66–73; PULSE 86–100; RESP 18–19
[2017-08-31] MEDS: morphine 2 MG INJ IV PRN ×4 (03:26→16:30)
[2017-08-31] MEDS: VANCOMYCIN HCL 250 MG/5ML POSYG GTB SCH ×4 (06:58→23:19)
[2017-08-31] MEDS: GABAPENTIN 300 MG CAP PO SCH ×3 (06:58→21:33)
[2017-08-31] MEDS: metroNIDAZOLE 500 MG TAB PO SCH ×3 (06:58→21:33)
[2017-08-31 08:47] LABS: ABNORMAL IP MESSAGE 1; HEMATOCRIT 39.2 % (37.0-47.0); HEMOGLOBIN 12.5 g/dl (12.0-16.0); MEAN CORPUSCULAR HEMOGLOBIN 30.4 pg (29.0-33.0); MEAN CORPUSCULAR HGB CONC 31.9 g/dl (32.0-37.0); MEAN CORPUSCULAR VOLUME 95.4 fl (82.0-101.0); PLATELET COUNT 502 10^3/UL (140-415); RED BLOOD COUNT 4.11 10^6/ul (4.20-5.40); RED CELL DISTRIBUTION WIDTH 15.9 % (11.5-14.5); WHITE BLOOD COUNT 14.6 10^3/ul (4.8-10.8)
[2017-08-31 08:53] LABS: POSITIVE DIFF @See below
[2017-08-31 09:11] LABS: CALCIUM 8.7 mg/dl (8.4-10.2); CREATININE 0.44 mg/dl (0.44-1.00); POTASSIUM 4.2 mmol/L (3.5-5.1)
[2017-08-31] MEDS: CHLORHEXIDINE GLUCONATE 15 ML UD CUP MM SCH ×2 (09:41→20:45)
[2017-08-31] MEDS: MULTIVITAMINS 30 ML CUP GTB SCH (09:41)
[2017-08-31] MEDS: AMLODIPINE 10 MG TAB GTB SCH (09:42)
[2017-08-31] MEDS: NYSTATIN SUSP 5 ML CUP GTB SCH ×4 (09:42→20:45)
[2017-08-31] MEDS: FAMOTIDINE 20 MG TAB GTB SCH (09:43)
[2017-08-31] MEDS: LACTOBACILLUS RHAMNOSUS CAP GTB SCH ×2 (09:43→20:45)
[2017-08-31] MEDS: POTASSIUM CHLORIDE 20 MEQ POWDER FOR ORAL SOLN GTB SCH ×2 (09:43→20:45)
[2017-08-31] MEDS: DULOXETINE 30 MG CAP DR GTB SCH (09:43)
[2017-08-31] MEDS: CHOLESTYRAMINE 4 GM PACKET PO SCH (09:45)
[2017-08-31] MEDS: MUPIROCIN 2% 22 GM OINT TOP SCH ×2 (09:56→20:46)
[2017-08-31] MEDS: ENOXAPARIN 40 MG/0.4 ML SYG SC SCH (09:56)
[2017-08-31] MEDS ORDERED: QUESTRAN PO (10:12)
[2017-08-31] MEDS ORDERED: METR500T PO (10:12)
[2017-08-31] MEDS ORDERED: Vancomycin Oral Syringe GTB (10:12)
[2017-08-31 10:40] LABS: ANISOCYTOSIS 1+ (0-0); HYPOCHROMASIA 1+ (0-0); METAMYELOCYTES %M 4 % (0-0); MONOCYTES % (M) 10 % (0-11); MYELOCYTES % (M) 1 % (0-0); POIKILOCYTOSIS 2+ (0-0); POLYCHROMASIA 3+ (0-0); PROMYELOCYTES #M 0.1 10^3/ul (0-0); PROMYELOCYTES % (M) 1 % (0-0); REACTIVE LYMPHOCYTES% (M) 1 % (0-0)
[2017-08-31] MEDS: predniSONE 10 MG TAB GTB SCH (11:24)
--- NOTE | 2017-08-31 11:30 | DS ---
Date/Time of Note Date/Time of Note DATE: 08/31/17 TIME: 11:24 Discharge Summary Admission/Discharge Info Admit Date/Time Aug 28, 2017 at 18:38 Discharge Date/Time August 31, 2017 Discharge Diagnosis 1. C. difficile colitis Diarrhea now resolved DC with vancomycin p.o. and Flagyl p.o. ID consultation appreciated 2. Debility secondary to prolonged hospitalization for pneumonia Patient had pneumonia several months ago which required a prolonged stay at [facility], patient subsequently developed muscular weakness and was discharged to a rehab facility for PT DC back to rehab facility 3. MRSA in the nares DC with baclofen Patient Condition: Good Hospital Course Patient is a 42-year-old female with history of a prolonged course of pneumonia requiring ICU hospitalization at [facility] several months ago with subsequent muscular weakness requiring senior living placement. Patient presents with diarrhea, was found to have C. difficile several days prior to hospitalization and was started on treatment but apparently a CBC was done which showed severe leukocytosis patient was sent to the ED. Patient was started on vancomycin p.o. as well as Flagyl p.o. and cholestyramine. Patient was seen by ID, her diarrhea did resolve. Of note patient does have a PEG tube but was able to tolerate a p.o. diet and currently uses a PEG tube for receiving medications because she feels as though she is going to choke on the medications. Patient was felt to be stable for discharge back to rehab facility , on day of discharge she had no acute complaints with no further diarrhea, her vitals, labs and physical exam are stable and questions are answered. Home Meds Active Scripts Cholestyramine* (Questran*) 1 Pkt Susp, 1 PKT PO DAILY for 10 Days Prov:PARIS REHMAN 08/31/17 [Vancomycin Oral Syringe] 50 MG/ML SOLN No Conflict Check, 250 MG GTB Q6 for 10 Days Prov:PARIS REHMAN 08/31/17 Metronidazole* (Flagyl*) 500 Mg Tablet, 500 MG PO Q8 for 10 Days, TAB Prov:PARIS REHMAN 08/31/17 Reported Medications Ondansetron Hcl* (Zofran*) 4 Mg Tab, 4 MG PO Q4H Y for NAUSEA AND OR VOMITING, TAB 08/28/17 Trazodone Hcl* (Trazodone Hcl*) 50 Mg Tablet, 50 MG GTB QHS, #30 TAB 08/28/17 Sennosides* (Senna Lax*) 8.6 Mg Tablet, 1 TAB GTB Q12H Y for CONSTIPATION, TAB AND TAKE 2TAB QHS 08/28/17 Protein Supplement (Promod) 946 Ml Liquid, 30 ML GTB TID 08/28/17 Prednisone* (Prednisone*) 10 Mg Tab, 10 MG GTB DAILY, TAB 08/28/17 Potassium Chloride* (Potassium Chloride*) 20 Meq/15 Ml Liquid, 40 MEQ GTB BID, ML 08/28/17 Famotidine* (Famotidine*) 20 Mg Tablet, 20 MG PO DAILY, #30 TAB 08/28/17 Oxycodone Hcl* (Oxycontin*) 10 Mg Tab.sr.12h, 10 MG GTB Q12, TAB 08/28/17 Oxycodone Hcl* (IR) (Oxycodone Hcl*) 5 Mg Capsule, 5 MG PO Q4H Y for PAIN, CAP 08/28/17 Nystatin (Nystatin) 100,000 Unit/1 Ml Oral.susp, 5 ML PO QID, #60 ML FOR 14 DAYS, START DATE08/28/17 - STOP DATE 09/11/17 08/28/17 Multivitamin/Minerals* (Multivitamin w/Min* Liq) 9 Mg/15 Ml Liquid, 30 ML GTB DAILY, ML 08/28/17 Lactobacillus Acidophilus* (Lactinex*) 1 Tab Chew, 1 TAB GTB BID, TAB 08/28/17 Guaifenesin-Codeine Phosphate* (Robitussin* AC) 5 Ml Syrup, 5 ML GTB Q6H Y for COUGH, ML 08/28/17 Gabapentin* (Gabapentin*) 600 Mg Tablet, 600 MG PO Q8H, #90 TAB 08/28/17 Na Phos,M-B/Na Phos,Di-Ba (Fleet Enema Extra) 230 Ml Enema, 118 ML RC Q72H Y for NEEDED, ENEMA 08/28/17 Ipratropium-Albuterol (Ipratropium-Albuterol) 0.5-3 Mg/3 Ml Ampul.neb, 3 ML INHALATION Q6 for BRONCHOSPASM, #30 VIAL 08/28/17 Duloxetine Hcl* (Cymbalta*) 60 Mg Capsule.dr, 60 MG GTB DAILY, CAP 08/28/17 Clonidine Hcl* (Clonidine Hcl*) 0.1 Mg Tab, 0.1 MG GTB Q6, TAB FOR SBP>160 08/28/17 Chlorhexidine Gluconate (Paroex) 473 Ml Mouthwash, 0.5 OZ MM Q12H, BOTTLE 08/28/17 Amlodipine Besylate* (Amlodipine Besylate*) 10 Mg Tablet, 10 MG GTB DAILY, #30 TAB HOLD FOR SBP<110 08/28/17 Albuterol Sulfate* (Albuterol Sulfate* Neb) 0.083%-3 Ml Neb, 2.5 MG NEB Q4H Y for WHEEZING AND SOB, #30 VIAL 08/28/17 Salmeterol Xinaf/Fluticasone* (Advair*) 250-50 Diskus Inhaler, 1 INH INHALATION BID, #1 INHALER 08/28/17 Acetaminophen* (Tylenol*) 160 Mg/5ML-Ped Cup, 650 MG GTB Q4H Y for MILD PAIN LEVEL 1-3, ML AND PER FEEDING TUBE,AND FOR FEVER>101.5F 08/28/17 Acetaminophen* (Acephen*) 650 Mg Supp.rect, 650 MG [place] Q4H Y for PAIN1-3/10, SUPP.RECT AND FOR TEMPERATURE>101.5F 08/28/17 Discontinued Reported Medications Vancomycin Hcl* (Vancomycin Hcl* Liq) 8.33 Mg/Ml Soln, 125 MG PO DAILY, ML FOR 7 DAYS,START DATE 09/19/17 END DATE 09/26/17 08/28/17 Vancomycin Hcl* (Vancomycin Hcl* Liq) 8.33 Mg/Ml Soln, 250 MG PO Q6H, ML FOR 7 DAYS, START DATE 08/27/17 END 09/03/17 08/28/17 Vancomycin Hcl* (Vancomycin Hcl* Liq) 8.33 Mg/Ml Soln, 125 MG PO Q6H, ML FOR 7 DAYS,START DATE 09/04/17 END DATE 09/10/17 08/28/17 Vancomycin Hcl* (Vancomycin Hcl* Liq) 8.33 Mg/Ml Soln, 250 MG PO Q6H, ML FOR 14 DAYS,START DATE 08/28/17 END DATE 09/10/17 08/28/17 Vancomycin Hcl* (Vancomycin Hcl* Liq) 8.33 Mg/Ml Soln, 125 MG PO Q12H, ML TAKE FOR 7 DAYS, START DATE 09/11/17 END DATE 09/18/17 08/28/17 Pantoprazole* (Protonix*) 40 Mg Tablet.dr, 40 MG GTB DAILY, TAB 08/28/17 Chlorhexidine Gluconate* (Chlorhexidine Gluconate*) 118 Ml Liquid, 118 ML TOP, ML 08/28/17 Follow-up Plan Follow-up with physicians at the rehab facility Primary Care Provider Aristeo Paul Time spent on discharge: > 30 minutes PARIS REHMAN Aug 31, 2017 11:30
[2017-08-31] MEDS: ONDANSETRON 4 MG INJ IV PRN (12:34)
--- NOTE | 2017-08-31 17:46 | CONS ---
Date/Time of Note Date/Time of Note DATE: 08/31/17 TIME: 17:45 Assessment/Plan Assessment/Plan Chief Complaint/Hosp Course SUBJECTIVE: The patient is awake, diarrhea improved. She is in no distress. MICROBIOLOGY: Blood culture negative. Stool for C. difficile positive, MRSA swab positive. ANTIMICROBIALS: Vancomycin, Flagyl, Questran PHYSICAL EXAMINATION: GENERAL: Well-developed, middle-aged -[place] woman who is alert, in no distress. HEENT: Head atraumatic, normocephalic. Sclerae anicteric. Buccal mucosa pink. NECK: Supple. CHEST: Rise symmetrical. Breath sounds clear. HEART: S1, S2. ABDOMEN: Soft. Bowel tones present. ASSESSMENT: 1. Ongoing diarrhea secondary to Clostridium difficile colitis. 2. Status post pneumonia. PLAN: Improving, continue abx DW staff Problems: Consultation Date/Type/Reason Admit Date/Time Aug 28, 2017 at 18:38 Initial Consult Date Type of Consultation: id Exam/Review of Systems Vital Signs Vitals Vital Signs Date Time Temp Pulse Resp B/P Pulse Ox O2 Delivery O2 Flow Rate FiO2 08/31/17 16:25 98.0 89 18 116/73 98 08/30/17 16:10 Room Air Intake and Output 08/30/17 08/30/17 08/31/17 15:00 23:00 07:00 Intake Total 600 ml 350 ml Output Total 1200 ml 1500 ml Balance -600 ml -1150 ml Results Result Diagram: 08/31/17 0829 08/31/17 0829 Results 24 hrs Laboratory Tests Test 08/31/17 08:29 White Blood Count 14.6 #H Red Blood Count 4.11 L Hemoglobin 12.5 Hematocrit 39.2 Mean Corpuscular Volume 95.4 Mean Corpuscular Hemoglobin 30.4 Mean Corpuscular Hemoglobin Concent 31.9 L Red Cell Distribution Width 15.9 H Platelet Count 502 H Mean Platelet Volume 9.0 Neutrophils % Segmented Neutrophils % (Manual) 64 Band Neutrophils % (Manual) 4 Lymphocytes % Lymphocytes % (Manual) 15 Reactive Lymphocytes % (Manual) 1 H Monocytes % Monocytes % (Manual) 10 Eosinophils % Basophils % Metamyelocytes % (manual) 4 H Myelocytes % (Manual) 1 H Promyelocytes % (Manual) 1 H Nucleated Red Blood Cells % 0.0 Neutrophils # Neutrophils # (Manual) 9.4 H Band Neutrophils # 0.5 Absolute Lymphocytes (Manual) 2.1 Lymphocytes # Reactive Lymphocytes # 0.1 H Monocytes # Absolute Monocytes (Manual) 1.4 H Eosinophils # Basophils # Metamyelocytes # 0.5 H Myelocytes # 0.1 H Promyelocytes # 0.1 H Nucleated Red Blood Cells # Polychromasia 3+ Hypochromasia 1+ Poikilocytosis 2+ Anisocytosis 1+ Sodium Level 132 L Potassium Level 4.2 Chloride Level 101 Carbon Dioxide Level 27 Anion Gap 8 Blood Urea Nitrogen 2 L Creatinine 0.44 Glucose Level 72 Calcium Level 8.7 Medications Medications Current Medications Ondansetron HCl (Zofran Inj) 4 mg Q6H PRN IV NAUSEA AND/OR VOMITING Last administered on 08/31/17 12:34; Admin Dose 4 MG; Start 08/28/17 at 19:00 Acetaminophen (Tylenol Tab) 650 mg Q6H PRN PO PAIN LEVEL 1-3 OR FEVER; Start 08/28/17 at 19:00 Acetaminophen/ Hydrocodone Bitart ([place] (5/325)) 1 tab Q6H PRN PO MODERATE PAIN LEVEL 4-6; Start 08/28/17 at 19:00 Morphine Sulfate (morphine) 2 mg Q4H PRN IV SEVERE PAIN LEVEL 7-10 Last administered on 08/31/17 16:30; Admin Dose 2 MG; Start 08/28/17 at 19:00 Docusate Sodium (Colace) 100 mg Q12H PRN PO CONSTIPATION; Start 08/28/17 at 19 :00 Magnesium Hydroxide (Milk Of Mag) 30 ml DAILY PRN PO CONSTIPATION; Start 08/28 at 19:00 Sodium Biphosphate/ Sodium Phosphate (Fleet Enema) 133 ml DAILY PRN [place] CONSTIPATION; Start 08/28/17 at 19:00 Lorazepam (Ativan) 0.5 mg Q6H PRN IV ANXIETY; Start 08/28/17 at 19:00 Hydralazine HCl (Apresoline) 10 mg Q6H PRN IV ELEVATED BLOOD PRESSURE; Start 08/28/17 at 19:00 Nitroglycerin (Nitroglycerin (Sl Tab) 0.4 Mg) 1 tab Q5M PRN SL ANGINA; Start 08/28/17 at 19:00 Amlodipine Besylate (Norvasc) 10 mg DAILY GTB Last administered on 08/31/17 09:42; Admin Dose 10 MG; Start 08/29/17 at 09:00 Chlorhexidine Gluconate (Peridex) 15 ml Q12 MM Last administered on 08/31/17 09:41; Admin Dose 15 ML; Start 08/28/17 at 21:00 Clonidine (Catapres) 0.1 mg Q6 GTB Last administered on 08/31/17 12:36; Admin Dose 0.1 MG; Start 08/29/17 at 00:00 Duloxetine HCl (Cymbalta) 60 mg DAILY GTB Last administered on 08/31/17 09:43 ; Admin Dose 60 MG; Start 08/29/17 at 09:00 Gabapentin (Neurontin) 600 mg Q8 PO Last administered on 08/31/17 14:00; Admin Dose 600 MG; Start 08/28/17 at 22:00 Guaifenesin/ Codeine Phosphate (Robitussin Ac Liquid Cup) 5 ml Q6H PRN GTB COUGH; Start 08/28/17 at 19:00 Ondansetron HCl (Zofran Tab) 4 mg Q4H PRN PO NAUSEA AND/OR VOMITING Last administered on 08/29/17 15:36; Admin Dose 4 MG; Start 08/28/17 at 19:00 Potassium Chloride (Potassium Chloride Pwd/Soln) 40 meq BID GTB Last administered on 08/31/17 09:43; Admin Dose 40 MEQ; Start 08/28/17 at 21:00 Prednisone (Prednisone) 10 mg DAILY GTB Last administered on 08/31/17 11:24; Admin Dose 10 MG; Start 08/29/17 at 09:00 Senna (Senokot) 1 tab Q12H PRN GTB CONSTIPATION; Start 08/28/17 at 19:00 Trazodone HCl (Desyrel) 50 mg QHS GTB Last administered on 08/30/17 20:54; Admin Dose 50 MG; Start 08/28/17 at 21:00 Lactobacillus Acidophilus/ Rhamnosus (Culturelle) 1 cap BID GTB Last administered on 08/31/17 09:43; Admin Dose 1 CAP; Start 08/29/17 at 09:00 Multivitamins (Multivitamin) 30 ml DAILY GTB Last administered on 08/31/17 09 :41; Admin Dose 30 ML; Start 08/29/17 at 09:00 Enoxaparin Sodium (Lovenox) 40 mg DAILY SC Last administered on 08/31/17 09: 56; Admin Dose 40 MG; Start 08/30/17 at 09:00 Famotidine (Pepcid) 20 mg DAILY GTB Last administered on 08/31/17 09:43; Admin Dose 20 MG; Start 08/30/17 at 09:00 Nystatin (Nystatin Susp) 5 ml QID GTB Last administered on 08/31/17 16:29; Admin Dose 5 ML; Start 08/29/17 at 13:00 Vancomycin HCl (Vancomycin Oral Syringe) 250 mg Q6 GTB Last administered on 12:34; Admin Dose 250 MG; Start 08/29/17 at 18:00 Metronidazole (Flagyl) 500 mg Q8 PO Last administered on 08/31/17 14:00; Admin Dose 500 MG; Start 08/30/17 at 15:00 Cholestyramine Resin (Questran) 1 pkt DAILY PO Last administered on 08/31/17 09:45; Admin Dose 1 PKT; Start 08/30/17 at 15:00 Mupirocin (Bactroban) 1 applic BID TOP Last administered on 08/31/17 09:56; Admin Dose 1 APPLIC; Start 08/30/17 at 15:00 TATYANA JOVEL NP Aug 31, 2017 17:46
[2017-08-31] MEDS: traZODone 50 MG TAB GTB SCH (20:45)
[2017-08-31] MEDS: HYDROCODONE/APAP (5/325) TAB PO PRN (23:20)
[2017-09-01] VITALS (10 sets, daily range): BP systolic 91–102; BP diastolic 52–69; PULSE 77–99; RESP 16–20
[2017-09-01] MEDS: metroNIDAZOLE 500 MG TAB PO SCH ×3 (05:41→20:33)
[2017-09-01] MEDS: GABAPENTIN 300 MG CAP PO SCH ×3 (05:41→20:33)
[2017-09-01] MEDS: VANCOMYCIN HCL 250 MG/5ML POSYG GTB SCH ×3 (05:43→17:42)
[2017-09-01] MEDS: AMLODIPINE 10 MG TAB GTB SCH (09:00)
[2017-09-01] MEDS: CHOLESTYRAMINE 4 GM PACKET PO SCH (09:13)
[2017-09-01] MEDS: NYSTATIN SUSP 5 ML CUP GTB SCH ×4 (09:13→20:32)
[2017-09-01] MEDS: CHLORHEXIDINE GLUCONATE 15 ML UD CUP MM SCH ×2 (09:13→20:32)
[2017-09-01] MEDS: MULTIVITAMINS 30 ML CUP GTB SCH (09:13)
[2017-09-01] MEDS: FAMOTIDINE 20 MG TAB GTB SCH (09:14)
[2017-09-01] MEDS: POTASSIUM CHLORIDE 20 MEQ POWDER FOR ORAL SOLN GTB SCH ×2 (09:14→20:32)
[2017-09-01] MEDS: DULOXETINE 30 MG CAP DR GTB SCH (09:15)
[2017-09-01] MEDS: predniSONE 10 MG TAB GTB SCH (09:15)
[2017-09-01] MEDS: LACTOBACILLUS RHAMNOSUS CAP GTB SCH ×2 (09:15→20:33)
[2017-09-01] MEDS: MUPIROCIN 2% 22 GM OINT TOP SCH ×2 (09:16→20:32)
[2017-09-01] MEDS: ENOXAPARIN 40 MG/0.4 ML SYG SC SCH (09:18)
[2017-09-01] MEDS: HYDROCODONE/APAP (5/325) TAB PO PRN ×2 (13:05→20:34)
--- NOTE | 2017-09-01 14:28 | PN ---
Date/Time of Note Date/Time of Note DATE: 09/01/17 TIME: 14:24 Assessment/Plan VTE Prophylaxis VTE Prophylaxis Intervention: LMWH Lines/Catheters IV Catheter Type (from Nrs): [facility]ine Lock Urinary Cath still in place: No Assessment/Plan Chief Complaint/Hosp Course 1. C. difficile colitis Continue vancomycin p.o. as well as Flagyl p.o. ID consultation appreciated Patient also started on cholestyramine 2. Debility secondary to prolonged hospitalization for pneumonia Patient had pneumonia several months ago which required a prolonged stay at [facility], patient subsequently developed muscular weakness and was discharged to a rehab facility for PT No indication for further vancomycin IV and Zosyn as pneumonia has already been treated, DC Vanco IV and Zosyn PT evaluation Speech therapy evaluation appreciated, patient started on a regular diet PPX: Lovenox Discharge planning: Patient was discharged back to long term facility yesterday but there are no isolation beds available, discharge is being held until an isolation bed in a fci can be found Problems: Subjective 24 Hr Interval Summary Constitutional: no complaints Exam/Review of Systems Vital Signs Vitals Vital Signs Date Time Temp Pulse Resp B/P Pulse Ox O2 Delivery O2 Flow Rate FiO2 09/01/17 12:05 91 09/01/17 12:02 98.0 18 102/56 98 08/30/17 16:10 Room Air Intake and Output 08/31/17 08/31/17 09/01/17 14:59 22:59 06:59 Intake Total 2000 ml Balance 2000 ml Exam Constitutional: alert, oriented Respiratory: clear to auscultation Cardiovascular: regular rate and rhythm Gastrointestinal: soft, No distended Musculoskeletal: nl extremities to inspection Results Result Diagram: 08/31/17 0829 08/31/17 0829 Medications Medications Current Medications Ondansetron HCl (Zofran Inj) 4 mg Q6H PRN IV NAUSEA AND/OR VOMITING Last administered on 08/31/17 12:34; Admin Dose 4 MG; Start 08/28/17 at 19:00 Acetaminophen (Tylenol Tab) 650 mg Q6H PRN PO PAIN LEVEL 1-3 OR FEVER; Start 08/28/17 at 19:00 Acetaminophen/ Hydrocodone Bitart ([place] (5/325)) 1 tab Q6H PRN PO MODERATE PAIN LEVEL 4-6 Last administered on 09/01/17 13:05; Admin Dose 1 TAB; Start 08/28/17 at 19:00 Morphine Sulfate (morphine) 2 mg Q4H PRN IV SEVERE PAIN LEVEL 7-10 Last administered on 08/31/17 16:30; Admin Dose 2 MG; Start 08/28/17 at 19:00 Docusate Sodium (Colace) 100 mg Q12H PRN PO CONSTIPATION; Start 08/28/17 at 19 :00 Magnesium Hydroxide (Milk Of Mag) 30 ml DAILY PRN PO CONSTIPATION; Start 08/28 at 19:00 Sodium Biphosphate/ Sodium Phosphate (Fleet Enema) 133 ml DAILY PRN [place] CONSTIPATION; Start 08/28/17 at 19:00 Lorazepam (Ativan) 0.5 mg Q6H PRN IV ANXIETY; Start 08/28/17 at 19:00 Hydralazine HCl (Apresoline) 10 mg Q6H PRN IV ELEVATED BLOOD PRESSURE; Start 08/28/17 at 19:00 Nitroglycerin (Nitroglycerin (Sl Tab) 0.4 Mg) 1 tab Q5M PRN SL ANGINA; Start 08/28/17 at 19:00 Amlodipine Besylate (Norvasc) 10 mg DAILY GTB Last administered on 08/31/17 09:42; Admin Dose 10 MG; Start 08/29/17 at 09:00 Chlorhexidine Gluconate (Peridex) 15 ml Q12 MM Last administered on 09/01/17 09:13; Admin Dose 15 ML; Start 08/28/17 at 21:00 Clonidine (Catapres) 0.1 mg Q6 GTB Last administered on 09/01/17 05:41; Admin Dose 0.1 MG; Start 08/29/17 at 00:00 Duloxetine HCl (Cymbalta) 60 mg DAILY GTB Last administered on 09/01/17 09:15 ; Admin Dose 60 MG; Start 08/29/17 at 09:00 Gabapentin (Neurontin) 600 mg Q8 PO Last administered on 09/01/17 13:05; Admin Dose 600 MG; Start 08/28/17 at 22:00 Guaifenesin/ Codeine Phosphate (Robitussin Ac Liquid Cup) 5 ml Q6H PRN GTB COUGH; Start 08/28/17 at 19:00 Ondansetron HCl (Zofran Tab) 4 mg Q4H PRN PO NAUSEA AND/OR VOMITING Last administered on 08/29/17 15:36; Admin Dose 4 MG; Start 08/28/17 at 19:00 Potassium Chloride (Potassium Chloride Pwd/Soln) 40 meq BID GTB Last administered on 09/01/17 09:14; Admin Dose 40 MEQ; Start 08/28/17 at 21:00 Prednisone (Prednisone) 10 mg DAILY GTB Last administered on 09/01/17 09:15; Admin Dose 10 MG; Start 08/29/17 at 09:00 Senna (Senokot) 1 tab Q12H PRN GTB CONSTIPATION; Start 08/28/17 at 19:00 Trazodone HCl (Desyrel) 50 mg QHS GTB Last administered on 08/31/17 20:45; Admin Dose 50 MG; Start 08/28/17 at 21:00 Lactobacillus Acidophilus/ Rhamnosus (Culturelle) 1 cap BID GTB Last administered on 09/01/17 09:15; Admin Dose 1 CAP; Start 08/29/17 at 09:00 Multivitamins (Multivitamin) 30 ml DAILY GTB Last administered on 09/01/17 09 :13; Admin Dose 30 ML; Start 08/29/17 at 09:00 Enoxaparin Sodium (Lovenox) 40 mg DAILY SC Last administered on 09/01/17 09: 18; Admin Dose 40 MG; Start 08/30/17 at 09:00 Famotidine (Pepcid) 20 mg DAILY GTB Last administered on 09/01/17 09:14; Admin Dose 20 MG; Start 08/30/17 at 09:00 Nystatin (Nystatin Susp) 5 ml QID GTB Last administered on 09/01/17 12:59; Admin Dose 5 ML; Start 08/29/17 at 13:00 Vancomycin HCl (Vancomycin Oral Syringe) 250 mg Q6 GTB Last administered on 12:59; Admin Dose 250 MG; Start 08/29/17 at 18:00 Metronidazole (Flagyl) 500 mg Q8 PO Last administered on 09/01/17 13:05; Admin Dose 500 MG; Start 08/30/17 at 15:00 Cholestyramine Resin (Questran) 1 pkt DAILY PO Last administered on 09/01/17 09:13; Admin Dose 1 PKT; Start 08/30/17 at 15:00 Mupirocin (Bactroban) 1 applic BID TOP Last administered on 09/01/17 09:16; Admin Dose 1 APPLIC; Start 08/30/17 at 15:00 PARIS REHMAN Sep 01, 2017 14:27
--- NOTE | 2017-09-01 18:25 | CONS ---
Date/Time of Note Date/Time of Note DATE: 09/01/17 TIME: 18:24 Assessment/Plan Assessment/Plan Chief Complaint/Hosp Course SUBJECTIVE: The patient is awake, feels better, diarrhea improving MICROBIOLOGY: Blood culture negative. Stool for C. difficile positive, MRSA swab positive. ANTIMICROBIALS: Vancomycin, Flagyl, Questran PHYSICAL EXAMINATION: GENERAL: Well-developed, middle-aged -[place] woman who is alert, in no distress. HEENT: Head atraumatic, normocephalic. Sclerae anicteric. Buccal mucosa pink. NECK: Supple. CHEST: Rise symmetrical. Breath sounds clear. HEART: S1, S2. ABDOMEN: Soft. Bowel tones present. ASSESSMENT: 1. Ongoing diarrhea secondary to Clostridium difficile colitis. 2. Status post pneumonia. PLAN: Improving, continue abx DW staff Problems: Consultation Date/Type/Reason Admit Date/Time Aug 28, 2017 at 18:38 Type of Consultation: id Exam/Review of Systems Vital Signs Vitals Vital Signs Date Time Temp Pulse Resp B/P Pulse Ox O2 Delivery O2 Flow Rate FiO2 09/01/17 15:45 98.0 99 18 96/55 98 Room Air Intake and Output 08/31/17 08/31/17 09/01/17 15:00 23:00 07:00 Intake Total 2000 ml Balance 2000 ml Results Result Diagram: 08/31/17 0829 08/31/17 0829 Medications Medications Current Medications Ondansetron HCl (Zofran Inj) 4 mg Q6H PRN IV NAUSEA AND/OR VOMITING Last administered on 08/31/17 12:34; Admin Dose 4 MG; Start 08/28/17 at 19:00 Acetaminophen (Tylenol Tab) 650 mg Q6H PRN PO PAIN LEVEL 1-3 OR FEVER Last administered on 09/01/17 16:40; Admin Dose 650 MG; Start 08/28/17 at 19:00 Acetaminophen/ Hydrocodone Bitart ([place] (5/325)) 1 tab Q6H PRN PO MODERATE PAIN LEVEL 4-6 Last administered on 09/01/17 13:05; Admin Dose 1 TAB; Start 08/28/17 at 19:00 Morphine Sulfate (morphine) 2 mg Q4H PRN IV SEVERE PAIN LEVEL 7-10 Last administered on 08/31/17 16:30; Admin Dose 2 MG; Start 08/28/17 at 19:00 Docusate Sodium (Colace) 100 mg Q12H PRN PO CONSTIPATION; Start 08/28/17 at 19 :00 Magnesium Hydroxide (Milk Of Mag) 30 ml DAILY PRN PO CONSTIPATION; Start 08/28 at 19:00 Sodium Biphosphate/ Sodium Phosphate (Fleet Enema) 133 ml DAILY PRN [place] CONSTIPATION; Start 08/28/17 at 19:00 Lorazepam (Ativan) 0.5 mg Q6H PRN IV ANXIETY; Start 08/28/17 at 19:00 Hydralazine HCl (Apresoline) 10 mg Q6H PRN IV ELEVATED BLOOD PRESSURE; Start 08/28/17 at 19:00 Nitroglycerin (Nitroglycerin (Sl Tab) 0.4 Mg) 1 tab Q5M PRN SL ANGINA; Start 08/28/17 at 19:00 Amlodipine Besylate (Norvasc) 10 mg DAILY GTB Last administered on 08/31/17 09:42; Admin Dose 10 MG; Start 08/29/17 at 09:00 Chlorhexidine Gluconate (Peridex) 15 ml Q12 MM Last administered on 09/01/17 09:13; Admin Dose 15 ML; Start 08/28/17 at 21:00 Clonidine (Catapres) 0.1 mg Q6 GTB Last administered on 09/01/17 05:41; Admin Dose 0.1 MG; Start 08/29/17 at 00:00 Duloxetine HCl (Cymbalta) 60 mg DAILY GTB Last administered on 09/01/17 09:15 ; Admin Dose 60 MG; Start 08/29/17 at 09:00 Gabapentin (Neurontin) 600 mg Q8 PO Last administered on 09/01/17 13:05; Admin Dose 600 MG; Start 08/28/17 at 22:00 Guaifenesin/ Codeine Phosphate (Robitussin Ac Liquid Cup) 5 ml Q6H PRN GTB COUGH; Start 08/28/17 at 19:00 Ondansetron HCl (Zofran Tab) 4 mg Q4H PRN PO NAUSEA AND/OR VOMITING Last administered on 08/29/17 15:36; Admin Dose 4 MG; Start 08/28/17 at 19:00 Potassium Chloride (Potassium Chloride Pwd/Soln) 40 meq BID GTB Last administered on 09/01/17 09:14; Admin Dose 40 MEQ; Start 08/28/17 at 21:00 Prednisone (Prednisone) 10 mg DAILY GTB Last administered on 09/01/17 09:15; Admin Dose 10 MG; Start 08/29/17 at 09:00 Senna (Senokot) 1 tab Q12H PRN GTB CONSTIPATION; Start 08/28/17 at 19:00 Trazodone HCl (Desyrel) 50 mg QHS GTB Last administered on 08/31/17 20:45; Admin Dose 50 MG; Start 08/28/17 at 21:00 Lactobacillus Acidophilus/ Rhamnosus (Culturelle) 1 cap BID GTB Last administered on 09/01/17 09:15; Admin Dose 1 CAP; Start 08/29/17 at 09:00 Multivitamins (Multivitamin) 30 ml DAILY GTB Last administered on 09/01/17 09 :13; Admin Dose 30 ML; Start 08/29/17 at 09:00 Enoxaparin Sodium (Lovenox) 40 mg DAILY SC Last administered on 09/01/17 09: 18; Admin Dose 40 MG; Start 08/30/17 at 09:00 Famotidine (Pepcid) 20 mg DAILY GTB Last administered on 09/01/17 09:14; Admin Dose 20 MG; Start 08/30/17 at 09:00 Nystatin (Nystatin Susp) 5 ml QID GTB Last administered on 09/01/17 17:42; Admin Dose 5 ML; Start 08/29/17 at 13:00 Vancomycin HCl (Vancomycin Oral Syringe) 250 mg Q6 GTB Last administered on 17:42; Admin Dose 250 MG; Start 08/29/17 at 18:00 Metronidazole (Flagyl) 500 mg Q8 PO Last administered on 09/01/17 13:05; Admin Dose 500 MG; Start 08/30/17 at 15:00 Cholestyramine Resin (Questran) 1 pkt DAILY PO Last administered on 09/01/17 09:13; Admin Dose 1 PKT; Start 08/30/17 at 15:00 Mupirocin (Bactroban) 1 applic BID TOP Last administered on 09/01/17 09:16; Admin Dose 1 APPLIC; Start 08/30/17 at 15:00 TATYANA JOVEL NP Sep 01, 2017 18:24
[2017-09-01] MEDS: traZODone 50 MG TAB GTB SCH (20:33)
[2017-09-02] MEDS: VANCOMYCIN HCL 250 MG/5ML POSYG GTB SCH ×4 (00:14→17:50)
[2017-09-02 02:00] VITALS: BP 110/74; RESP 18
[2017-09-02] MEDS: HYDROCODONE/APAP (5/325) TAB PO PRN ×3 (04:34→19:55)
[2017-09-02] MEDS: GABAPENTIN 300 MG CAP PO SCH ×3 (05:46→21:28)
[2017-09-02] MEDS: metroNIDAZOLE 500 MG TAB PO SCH ×3 (05:46→21:28)
[2017-09-02 08:00] VITALS: BP 109/70; RESP 18
[2017-09-02] MEDS ORDERED: POTASSIUM CHLORIDE (SR) 20 MEQ TAB PO SCH ×2 (09:00)
[2017-09-02] MEDS: NYSTATIN SUSP 5 ML CUP GTB SCH ×4 (09:37→21:28)
[2017-09-02] MEDS: predniSONE 10 MG TAB GTB SCH (09:37)
[2017-09-02] MEDS: LACTOBACILLUS RHAMNOSUS CAP GTB SCH ×2 (09:37→21:28)
[2017-09-02] MEDS: DULOXETINE 30 MG CAP DR GTB SCH (09:37)
[2017-09-02] MEDS: CHOLESTYRAMINE 4 GM PACKET PO SCH (09:37)
[2017-09-02] MEDS: FAMOTIDINE 20 MG TAB GTB SCH (09:37)
[2017-09-02] MEDS: MULTIVITAMINS 30 ML CUP GTB SCH (09:38)
[2017-09-02] MEDS: CHLORHEXIDINE GLUCONATE 15 ML UD CUP MM SCH ×2 (09:38→21:28)
[2017-09-02] MEDS: MUPIROCIN 2% 22 GM OINT TOP SCH ×2 (09:39→21:27)
[2017-09-02] MEDS: ENOXAPARIN 40 MG/0.4 ML SYG SC SCH (09:39)
[2017-09-02] MEDS: AMLODIPINE 10 MG TAB GTB SCH (09:40)
[2017-09-02 14:00] VITALS: BP 112/79; RESP 17
[2017-09-02] MEDS: morphine 2 MG INJ IV PRN ×2 (17:55→22:34)
--- NOTE | 2017-09-02 18:27 | CONS ---
Date/Time of Note Date/Time of Note DATE: 09/02/17 TIME: 18:26 Assessment/Plan Assessment/Plan Chief Complaint/Hosp Course SUBJECTIVE: The patient is awake, feels better MICROBIOLOGY: Blood culture negative. Stool for C. difficile positive, MRSA swab positive. ANTIMICROBIALS: Vancomycin, Flagyl, Questran PHYSICAL EXAMINATION: GENERAL: Well-developed, middle-aged -[place] woman who is alert, in no distress. HEENT: Head atraumatic, normocephalic. Sclerae anicteric. Buccal mucosa pink. NECK: Supple. CHEST: Rise symmetrical. Breath sounds clear. HEART: S1, S2. ABDOMEN: Soft. Bowel tones present. ASSESSMENT: 1. Ongoing diarrhea secondary to Clostridium difficile colitis. 2. Status post pneumonia. PLAN: Continues to imporve, anticipate dc on oral Vanco for 2 more weeks DW staff Problems: Consultation Date/Type/Reason Admit Date/Time Aug 28, 2017 at 18:38 Type of Consultation: id Exam/Review of Systems Vital Signs Vitals Vital Signs Date Time Temp Pulse Resp B/P Pulse Ox O2 Delivery O2 Flow Rate FiO2 09/02/17 14:00 98.3 100 17 112/79 99 09/01/17 15:45 Room Air Intake and Output 09/01/17 09/01/17 09/02/17 15:00 23:00 07:00 Intake Total 520 ml 360 ml Output Total 800 ml Balance 520 ml -440 ml Results Result Diagram: 08/31/17 0829 08/31/17 0829 Medications Medications Current Medications Ondansetron HCl (Zofran Inj) 4 mg Q6H PRN IV NAUSEA AND/OR VOMITING Last administered on 08/31/17 12:34; Admin Dose 4 MG; Start 08/28/17 at 19:00 Acetaminophen (Tylenol Tab) 650 mg Q6H PRN PO PAIN LEVEL 1-3 OR FEVER Last administered on 09/01/17 16:40; Admin Dose 650 MG; Start 08/28/17 at 19:00 Acetaminophen/ Hydrocodone Bitart ([place] (5/325)) 1 tab Q6H PRN PO MODERATE PAIN LEVEL 4-6 Last administered on 09/02/17 12:09; Admin Dose 1 TAB; Start 08/28/17 at 19:00 Morphine Sulfate (morphine) 2 mg Q4H PRN IV SEVERE PAIN LEVEL 7-10 Last administered on 09/02/17 17:55; Admin Dose 2 MG; Start 08/28/17 at 19:00 Docusate Sodium (Colace) 100 mg Q12H PRN PO CONSTIPATION; Start 08/28/17 at 19 :00 Magnesium Hydroxide (Milk Of Mag) 30 ml DAILY PRN PO CONSTIPATION; Start 08/28 at 19:00 Sodium Biphosphate/ Sodium Phosphate (Fleet Enema) 133 ml DAILY PRN [place] CONSTIPATION; Start 08/28/17 at 19:00 Lorazepam (Ativan) 0.5 mg Q6H PRN IV ANXIETY; Start 08/28/17 at 19:00 Hydralazine HCl (Apresoline) 10 mg Q6H PRN IV ELEVATED BLOOD PRESSURE; Start 08/28/17 at 19:00 Nitroglycerin (Nitroglycerin (Sl Tab) 0.4 Mg) 1 tab Q5M PRN SL ANGINA; Start 08/28/17 at 19:00 Amlodipine Besylate (Norvasc) 10 mg DAILY GTB Last administered on 09/02/17 09:40; Admin Dose 10 MG; Start 08/29/17 at 09:00 Chlorhexidine Gluconate (Peridex) 15 ml Q12 MM Last administered on 09/02/17 09:38; Admin Dose 15 ML; Start 08/28/17 at 21:00 Clonidine (Catapres) 0.1 mg Q6 GTB Last administered on 09/01/17 05:41; Admin Dose 0.1 MG; Start 08/29/17 at 00:00 Duloxetine HCl (Cymbalta) 60 mg DAILY GTB Last administered on 09/02/17 09:37 ; Admin Dose 60 MG; Start 08/29/17 at 09:00 Gabapentin (Neurontin) 600 mg Q8 PO Last administered on 09/02/17 14:21; Admin Dose 600 MG; Start 08/28/17 at 22:00 Guaifenesin/ Codeine Phosphate (Robitussin Ac Liquid Cup) 5 ml Q6H PRN GTB COUGH; Start 08/28/17 at 19:00 Ondansetron HCl (Zofran Tab) 4 mg Q4H PRN PO NAUSEA AND/OR VOMITING Last administered on 08/29/17 15:36; Admin Dose 4 MG; Start 08/28/17 at 19:00 Prednisone (Prednisone) 10 mg DAILY GTB Last administered on 09/02/17 09:37; Admin Dose 10 MG; Start 08/29/17 at 09:00 Senna (Senokot) 1 tab Q12H PRN GTB CONSTIPATION; Start 08/28/17 at 19:00 Trazodone HCl (Desyrel) 50 mg QHS GTB Last administered on 09/01/17 20:33; Admin Dose 50 MG; Start 08/28/17 at 21:00 Lactobacillus Acidophilus/ Rhamnosus (Culturelle) 1 cap BID GTB Last administered on 09/02/17 09:37; Admin Dose 1 CAP; Start 08/29/17 at 09:00 Multivitamins (Multivitamin) 30 ml DAILY GTB Last administered on 09/02/17 09 :38; Admin Dose 30 ML; Start 08/29/17 at 09:00 Enoxaparin Sodium (Lovenox) 40 mg DAILY SC Last administered on 09/02/17 09: 39; Admin Dose 40 MG; Start 08/30/17 at 09:00 Famotidine (Pepcid) 20 mg DAILY GTB Last administered on 09/02/17 09:37; Admin Dose 20 MG; Start 08/30/17 at 09:00 Nystatin (Nystatin Susp) 5 ml QID GTB Last administered on 09/02/17 17:48; Admin Dose 5 ML; Start 08/29/17 at 13:00 Vancomycin HCl (Vancomycin Oral Syringe) 250 mg Q6 GTB Last administered on 17:50; Admin Dose 250 MG; Start 08/29/17 at 18:00 Metronidazole (Flagyl) 500 mg Q8 PO Last administered on 09/02/17 14:21; Admin Dose 500 MG; Start 08/30/17 at 15:00 Cholestyramine Resin (Questran) 1 pkt DAILY PO Last administered on 09/02/17 09:37; Admin Dose 1 PKT; Start 08/30/17 at 15:00 Mupirocin (Bactroban) 1 applic BID TOP Last administered on 09/02/17 09:39; Admin Dose 1 APPLIC; Start 08/30/17 at 15:00 Potassium Chloride (Klor-Con 20) 40 meq BID PO Last administered on 09/02/17 09:37; Admin Dose 40 MEQ; Start 09/02/17 at 09:00 TATYANA JOVEL NP Sep 02, 2017 18:27
[2017-09-02] MEDS: traZODone 50 MG TAB GTB SCH (19:55)
[2017-09-02 20:11] VITALS: BP 108/79; RESP 18
[2017-09-02] MEDS: POTASSIUM CHLORIDE 20 MEQ POWDER FOR ORAL SOLN GTB SCH (21:28)
[2017-09-03] MEDS: OXYCODONE/ACETAMINOPHEN (5/325) TAB PO PRN ×3 (00:07→12:40)
[2017-09-03] MEDS: VANCOMYCIN HCL 250 MG/5ML POSYG GTB SCH ×4 (00:07→17:15)
[2017-09-03 02:53] VITALS: BP 102/69; RESP 18
[2017-09-03] MEDS: GABAPENTIN 300 MG CAP PO SCH ×2 (05:45→14:27)
[2017-09-03] MEDS: metroNIDAZOLE 500 MG TAB PO SCH ×2 (05:46→14:27)
[2017-09-03 08:01] VITALS: BP 108/62; RESP 18
[2017-09-03] MEDS: CHLORHEXIDINE GLUCONATE 15 ML UD CUP MM SCH (09:18)
[2017-09-03] MEDS: LACTOBACILLUS RHAMNOSUS CAP GTB SCH (09:18)
[2017-09-03] MEDS: NYSTATIN SUSP 5 ML CUP GTB SCH ×3 (09:18→17:15)
[2017-09-03] MEDS: AMLODIPINE 10 MG TAB GTB SCH (09:19)
[2017-09-03] MEDS: CHOLESTYRAMINE 4 GM PACKET PO SCH (09:25)
[2017-09-03] MEDS: MULTIVITAMINS 30 ML CUP GTB SCH (09:26)
[2017-09-03] MEDS: predniSONE 10 MG TAB GTB SCH (09:26)
[2017-09-03] MEDS: DULOXETINE 30 MG CAP DR GTB SCH (09:26)
[2017-09-03] MEDS: FAMOTIDINE 20 MG TAB GTB SCH (09:26)
[2017-09-03] MEDS: POTASSIUM CHLORIDE 20 MEQ POWDER FOR ORAL SOLN GTB SCH (09:26)
[2017-09-03] MEDS: ENOXAPARIN 40 MG/0.4 ML SYG SC SCH (09:28)
[2017-09-03] MEDS: MUPIROCIN 2% 22 GM OINT TOP SCH (09:35)
[2017-09-03] MEDS: morphine 2 MG INJ IV PRN ×2 (09:49→17:15)
--- NOTE | 2017-09-03 11:56 | PN ---
Date/Time of Note Date/Time of Note DATE: 09/03/17 TIME: 11:56 Assessment/Plan VTE Prophylaxis VTE Prophylaxis Intervention: SCD's Lines/Catheters IV Catheter Type (from Nrsg): Saline Lock Urinary Cath still in place: No Assessment/Plan Assessment/Plan 1. C. difficile colitis- improving - ID on board and recommendations appreciated - Will need PO vancomycin and Flagyl for 2 more weeks - On cholestyramine and stools more formed 2. Debility secondary to prolonged hospitalization for pneumonia - Patient had pneumonia several months ago which required a prolonged stay at [facility], patient subsequently developed muscular weakness and was discharged to a rehab facility for PT - Already completed antibiotics for PNA - Speech therapy evaluation appreciated, patient started on a regular diet 3. Disposition - Awaiting placement to SNF due to need for isolation room Subjective 24 Hr Interval Summary Free Text/Dictation Patient doing well and denies any new complaints. Stools are still soft but denies any abdominal pain. No acute overnight events. Exam/Review of Systems Vital Signs Vitals Vital Signs Date Time Temp Pulse Resp B/P Pulse Ox O2 Delivery O2 Flow Rate FiO2 09/03/17 08:01 98.0 108 18 108/62 100 09/01/17 15:45 Room Air Intake and Output 09/02/17 09/02/17 09/03/17 15:00 23:00 07:00 Intake Total 880 ml 560 ml Balance 880 ml 560 ml Exam Constitutional: alert, oriented, well developed Psych: no complaints Head: atraumatic, normocephalic Eyes: EOMI, PERRL ENMT: mucosa pink and moist Neck: supple Respiratory: clear to auscultation, No crackles/rales, No wheezing Cardiovascular: regular rate and rhythm, No edema Gastrointestinal: non-tender, soft, No distended, No rebound or guarding Musculoskeletal: nl extremities to inspection Extremities: normal pulses Neurological: nl speech Skin: nl turgor Results Result Diagram: 08/31/1782808/31/17828 Medications Medications Current Medications Ondansetron HCl (Zofran Inj) 4 mg Q6H PRN IV NAUSEA AND/OR VOMITING Last administered on 08/31/17t 12:34; Admin Dose 4 MG; Start 08/28/17 at 19:00 Acetaminophen (Tylenol Tab) 650 mg Q6H PRN PO PAIN LEVEL 1-3 OR FEVER Last administered on 09/01/17 16:40; Admin Dose 650 MG; Start 08/28/17 at 19:00 Morphine Sulfate (morphine) 2 mg Q4H PRN IV SEVERE PAIN LEVEL 7-10 Last administered on 09/03/17 09:49; Admin Dose 2 MG; Start 08/28/17 at 19:00 Docusate Sodium (Colace) 100 mg Q12H PRN PO CONSTIPATION; Start 08/28/17 at 19 :00 Magnesium Hydroxide (Milk Of Mag) 30 ml DAILY PRN PO CONSTIPATION; Start 08/28 at 19:00 Sodium Biphosphate/ Sodium Phosphate (Fleet Enema) 133 ml DAILY PRN [place] CONSTIPATION; Start 08/28/17 at 19:00 Lorazepam (Ativan) 0.5 mg Q6H PRN IV ANXIETY; Start 08/28/17 at 19:00 Hydralazine HCl (Apresoline) 10 mg Q6H PRN IV ELEVATED BLOOD PRESSURE; Start 08/28/17 at 19:00 Nitroglycerin (Nitroglycerin (Sl Tab) 0.4 Mg) 1 tab Q5M PRN SL ANGINA; Start 08/28/17 at 19:00 Amlodipine Besylate (Norvasc) 10 mg DAILY GTB Last administered on 09/03/17 09:19; Admin Dose 10 MG; Start 08/29/17 at 09:00 Chlorhexidine Gluconate (Peridex) 15 ml Q12 MM Last administered on 09/03/17 09:18; Admin Dose 15 ML; Start 08/28/17 at 21:00 Clonidine (Catapres) 0.1 mg Q6 GTB Last administered on 09/01/17 05:41; Admin Dose 0.1 MG; Start 08/29/17 at 00:00 Duloxetine HCl (Cymbalta) 60 mg DAILY GTB Last administered on 09/03/17 09:26 ; Admin Dose 60 MG; Start 08/29/17 at 09:00 Gabapentin (Neurontin) 600 mg Q8 PO Last administered on 09/03/17 05:45; Admin Dose 600 MG; Start 08/28/17 at 22:00 Guaifenesin/ Codeine Phosphate (Robitussin Ac Liquid Cup) 5 ml Q6H PRN GTB COUGH; Start 08/28/17 at 19:00 Ondansetron HCl (Zofran Tab) 4 mg Q4H PRN PO NAUSEA AND/OR VOMITING Last administered on 08/29/17 15:36; Admin Dose 4 MG; Start 08/28/17 at 19:00 Prednisone (Prednisone) 10 mg DAILY GTB Last administered on 09/03/17 09:26; Admin Dose 10 MG; Start 08/29/17 at 09:00 Senna (Senokot) 1 tab Q12H PRN GTB CONSTIPATION; Start 08/28/17 at 19:00 Trazodone HCl (Desyrel) 50 mg QHS GTB Last administered on 09/02/17 19:55; Admin Dose 50 MG; Start 08/28/17 at 21:00 Lactobacillus Acidophilus/ Rhamnosus (Culturelle) 1 cap BID GTB Last administered on 09/03/17 09:18; Admin Dose 1 CAP; Start 08/29/17 at 09:00 Multivitamins (Multivitamin) 30 ml DAILY GTB Last administered on 09/03/17 09 :26; Admin Dose 30 ML; Start 08/29/17 at 09:00 Enoxaparin Sodium (Lovenox) 40 mg DAILY SC Last administered on 09/03/17 09: 28; Admin Dose 40 MG; Start 08/30/17 at 09:00 Famotidine (Pepcid) 20 mg DAILY GTB Last administered on 09/03/17 09:26; Admin Dose 20 MG; Start 08/30/17 at 09:00 Nystatin (Nystatin Susp) 5 ml QID GTB Last administered on 09/03/17 09:18; Admin Dose 5 ML; Start 08/29/17 at 13:00 Vancomycin HCl (Vancomycin Oral Syringe) 250 mg Q6 GTB Last administered on 05:45; Admin Dose 250 MG; Start 08/29/17 at 18:00 Metronidazole (Flagyl) 500 mg Q8 PO Last administered on 09/03/17 05:46; Admin Dose 500 MG; Start 08/30/17 at 15:00 Cholestyramine Resin (Questran) 1 pkt DAILY PO Last administered on 09/03/17 09:25; Admin Dose 1 PKT; Start 08/30/17 at 15:00 Mupirocin (Bactroban) 1 applic BID TOP Last administered on 09/03/17 09:35; Admin Dose 1 APPLIC; Start 08/30/17 at 15:00 Potassium Chloride (Potassium Chloride Pwd/Soln) 40 meq BID GTB Last administered on 09/03/17 09:26; Admin Dose 40 MEQ; Start 09/02/17 at 21:00 Oxycodone/ Acetaminophen (Percocet (5/ 325)) 1 tab Q4H PRN PO PAIN Last administered on 09/03/17 05:45; Admin Dose 1 TAB; Start 09/02/17 at 21:30 KATHI EDMONDSON MD Sep 03, 2017 11:56
[2017-09-03 14:49] VITALS: BP 115/77; RESP 19
--- NOTE | 2017-09-03 18:08 | DS ---
Date/Time of Note Date/Time of Note DATE: 09/03/17 TIME: 18:08 Discharge Summary Admission/Discharge Info Admit Date/Time Aug 28, 2017 at 18:38 Discharge Date/Time 09/03/17 Discharge Diagnosis 1. C. difficile colitis 2. Debility secondary to prolonged hospitalization for pneumonia 3. MRSA in the nares Patient Condition: Stable Consults Infectious disease Hx of Present Illness The patient is a 42-year-old female, past medical history of some kind of muscular atrophy, recently hospitalized at [facility] in June for 6 weeks of this year, prior lung infection, who was recently told she had C. diff test result positive. This was performed 2 days ago, so on Saturday. Apparently, they were giving her at the nursing facility vancomycin p.o., but when they got a CBC count back today, the white blood cell count was very elevated and decided to send her into the ER. She has been having abdominal pain and diarrhea symptoms, but no fevers or chills. No nausea, vomiting. No upper or lower GI bleeding. No chest pain. No shortness of breath. When she arrived here, her white blood cell count was elevated, at 32.8, and she was given a dose of antibiotics vancomycin p.o. as well. Hospital Course Patient is a 42-year-old female with history of a prolonged course of pneumonia requiring ICU hospitalization at [facility] several months ago with subsequent muscular weakness requiring [facility] placement. Patient presents with diarrhea, was found to have C. difficile several days prior to hospitalization and was started on treatment but apparently a CBC was done which showed severe leukocytosis patient was sent to the ED. Patient was started on vancomycin p.o. as well as Flagyl p.o. and cholestyramine. Patient was seen by ID, her diarrhea did resolve. Of note patient does have a PEG tube but was able to tolerate a p.o. diet and currently uses a PEG tube for receiving medications because she feels as though she is going to choke on the medications. Patient was felt to be stable for discharge back to SNF, on day of discharge she had no acute complaints with no further diarrhea, her vitals, labs and physical exam are stable and questions are answered. Patient was discharged in stable condition with 14 more days of PO Vancomycin per ID recommendations. Home Meds Active Scripts Cholestyramine* (Questran*) 1 Pkt Susp, 1 PKT PO DAILY for 10 Days Prov:PARIS REHMAN 08/31/17 [Vancomycin Oral Syringe] 50 MG/ML SOLN No Conflict Check, 250 MG GTB Q6 for 10 Days Prov:PARIS REHMAN 08/31/17 Metronidazole* (Flagyl*) 500 Mg Tablet, 500 MG PO Q8 for 10 Days, TAB Prov:PARIS REHMAN 08/31/17 Reported Medications Ondansetron Hcl* (Zofran*) 4 Mg Tab, 4 MG PO Q4H Y for NAUSEA AND OR VOMITING, TAB 08/28/17 Trazodone Hcl* (Trazodone Hcl*) 50 Mg Tablet, 50 MG GTB QHS, #30 TAB 08/28/17 Sennosides* (Senna Lax*) 8.6 Mg Tablet, 1 TAB GTB Q12H Y for CONSTIPATION, TAB AND TAKE 2TAB QHS 08/28/17 Protein Supplement (Promod) 946 Ml Liquid, 30 ML GTB TID 08/28/17 Prednisone* (Prednisone*) 10 Mg Tab, 10 MG GTB DAILY, TAB 08/28/17 Potassium Chloride* (Potassium Chloride*) 20 Meq/15 Ml Liquid, 40 MEQ GTB BID, ML 08/28/17 Famotidine* (Famotidine*) 20 Mg Tablet, 20 MG PO DAILY, #30 TAB 08/28/17 Oxycodone Hcl* (Oxycontin*) 10 Mg Tab.sr.12h, 10 MG GTB Q12, TAB 08/28/17 Oxycodone Hcl* (IR) (Oxycodone Hcl*) 5 Mg Capsule, 5 MG PO Q4H Y for PAIN, CAP 08/28/17 Nystatin (Nystatin) 100,000 Unit/1 Ml Oral.susp, 5 ML PO QID, #60 ML FOR 14 DAYS, START DATE08/28/17 - STOP DATE 09/11/17 08/28/17 Multivitamin/Minerals* (Multivitamin w/Min* Liq) 9 Mg/15 Ml Liquid, 30 ML GTB DAILY, ML 08/28/17 Lactobacillus Acidophilus* (Lactinex*) 1 Tab Chew, 1 TAB GTB BID, TAB 08/28/17 Guaifenesin-Codeine Phosphate* (Robitussin* AC) 5 Ml Syrup, 5 ML GTB Q6H Y for COUGH, ML 08/28/17 Gabapentin* (Gabapentin*) 600 Mg Tablet, 600 MG PO Q8H, #90 TAB 08/28/17 Na Phos,M-B/Na Phos,Di-Ba (Fleet Enema Extra) 230 Ml Enema, 118 ML RC Q72H Y for NEEDED, ENEMA 08/28/17 Ipratropium-Albuterol (Ipratropium-Albuterol) 0.5-3 Mg/3 Ml Ampul.neb, 3 ML INHALATION Q6 for BRONCHOSPASM, #30 VIAL 08/28/17 Duloxetine Hcl* (Cymbalta*) 60 Mg Capsule.dr, 60 MG GTB DAILY, CAP 08/28/17 Clonidine Hcl* (Clonidine Hcl*) 0.1 Mg Tab, 0.1 MG GTB Q6, TAB FOR SBP>160 08/28/17 Chlorhexidine Gluconate (Paroex) 473 Ml Mouthwash, 0.5 OZ MM Q12H, BOTTLE 08/28/17 Amlodipine Besylate* (Amlodipine Besylate*) 10 Mg Tablet, 10 MG GTB DAILY, #30 TAB HOLD FOR SBP<110 08/28/17 Albuterol Sulfate* (Albuterol Sulfate* Neb) 0.083%-3 Ml Neb, 2.5 MG NEB Q4H Y for WHEEZING AND SOB, #30 VIAL 08/28/17 Salmeterol Xinaf/Fluticasone* (Advair*) 250-50 Diskus Inhaler, 1 INH INHALATION BID, #1 INHALER 08/28/17 Acetaminophen* (Tylenol*) 160 Mg/5ML-Ped Cup, 650 MG GTB Q4H Y for MILD PAIN LEVEL 1-3, ML AND PER FEEDING TUBE,AND FOR FEVER>101.5F 08/28/17 Acetaminophen* (Acephen*) 650 Mg Supp.rect, 650 MG KS Q4H Y for PAIN1-3/10, SUPP.RECT AND FOR TEMPERATURE>101.5F 08/28/17 Discontinued Reported Medications Vancomycin Hcl* (Vancomycin Hcl* Liq) 8.33 Mg/Ml Soln, 125 MG PO DAILY, ML FOR 7 DAYS,START DATE 09/19/17 END DATE 09/26/17 08/28/17 Vancomycin Hcl* (Vancomycin Hcl* Liq) 8.33 Mg/Ml Soln, 250 MG PO Q6H, ML FOR 7 DAYS, START DATE 08/27/17 END 09/03/17 08/28/17 Vancomycin Hcl* (Vancomycin Hcl* Liq) 8.33 Mg/Ml Soln, 125 MG PO Q6H, ML FOR 7 DAYS,START DATE 09/04/17 END DATE 09/10/17 08/28/17 Vancomycin Hcl* (Vancomycin Hcl* Liq) 8.33 Mg/Ml Soln, 250 MG PO Q6H, ML FOR 14 DAYS,START DATE 08/28/17 END DATE 09/10/17 08/28/17 Vancomycin Hcl* (Vancomycin Hcl* Liq) 8.33 Mg/Ml Soln, 125 MG PO Q12H, ML TAKE FOR 7 DAYS, START DATE 09/11/17 END DATE 09/18/17 08/28/17 Pantoprazole* (Protonix*) 40 Mg Tablet.dr, 40 MG GTB DAILY, TAB 08/28/17 Chlorhexidine Gluconate* (Chlorhexidine Gluconate*) 118 Ml Liquid, 118 ML TOP, ML 08/28/17 Follow-up Plan Follow-up with physicians at the rehab facility Continue Vancomycin PO for 14 more days Primary Care Provider Aristeo Paul Time spent on discharge: > 30 minutes KATHI EDMONDSON MD Sep 03, 2017 18:08
== END 2017-09-03 19:36 | DRG 372 ==
LOC: E/R 15:53 → MS4 18:38 → PP2 09-01 15:30
PROVIDERS: ADMIT Hospitalist; ATTEND Hospitalist
DX: A04.72 Enterocolitis due to Clostridium difficile, not specified as recurrent (principal); E87.1 Hypo-osmolality and hyponatremia; M62.50 Muscle wasting and atrophy, not elsewhere classified, unspecified site; M62.81 Muscle weakness (generalized); E86.0 Dehydration; R53.81 Other malaise; Z22.322 Carrier or suspected carrier of Methicillin resistant Staphylococcus aureus; Z87.01 Personal history of pneumonia (recurrent); Z93.1 Gastrostomy status
CPT/HCPCS: 36415; 80048; 80053; 80061; 81001; 83036; 83605; 83690; 83735; 84100; 84439; 84443; 84484; 85025; 85610; 85730; 87040; 87045; 87075; 87081; 87086; 92610; 93005; 94664; 96374; 96375; 96376; 97162; 97530; J1644; J1650; J2270; J2405; J2543; J3370; J3475; J7030; J7040; J7070; J7512; P9612